=== PATIENT | female | born 1935 | race Caucasian/White ===

== ENCOUNTER → 2017-03-04 | Outpatient (CLI) | payer BC ==
[2017-03-04 12:29] LABS: BASO ABS # 0.06 K/uL (0-0.2); COMPLETE YES; IG% 0.3 %; LYMPH % 26.7 %; LYMPH ABS # 1.68 K/uL (1.2-3.4); MEAN CELL VOLUME 90.9 fL (80-100); MEAN CORPUSCULAR HEMOGLOBIN 30.5 pg (25-34); MEAN CORPUSCULAR HGB CONC 33.6 g/dl (32-36); MEAN PLATELET VOLUME 11.8 fL (7.4-10.4); MONO % 6.5 %; NEUT % 61.5 %; PLATELET COUNT 168 K/uL (130-400); RED BLOOD COUNT 4.29 M/uL (4.2-5.4)
[2017-03-04 12:57] LABS: BLOOD UREA NITROGEN 14 mg/dl (7-18); BUN/CREATININE RATIO 17.2 (10-20); CARBON DIOXIDE 27 mmol/L (21-32); CHLORIDE 107 mmol/L (98-107); CHOLESTEROL 202 mg/dl (0-200); CREATININE 0.83 mg/dl (0.60-1.20); GLUCOSE 90 mg/dl (70-99); POTASSIUM 4.1 mmol/L (3.5-5.1); SODIUM 142 mmol/L (136-145); TRIGLYCERIDES 106 mg/dl (0-150); VERY LOW DENSITY LIPOPROT CALC 21 mg/dl
[2017-03-04 13:07] LABS: CHOLESTEROL/HDL RATIO 3.5; HDL CHOLESTEROL 57 mg/dl; LDL CHOLESTEROL CALCULATED 124 mg/dl
== END | disposition home or self-care (01) ==
LOC: C.LABMFLN 08:10
PROVIDERS: ATTEND Family Medicine
DX: Z00.00 Encounter for general adult medical examination without abnormal findings (principal); E03.9 Hypothyroidism, unspecified

== ENCOUNTER 2018-09-08 05:41 | Inpatient (IN) ==
[2018-09-08] MEDS ORDERED: SODIUM CHLORIDE 0.9% 1000ML 1,000 ML IV ONE (05:51)
[2018-09-08] MEDS ORDERED: ONDANSETRON INJ 2 MG/ML 2 ML VIAL IV STA (05:51)
[2018-09-08 06:29] LABS: Hematocrit (blood only) 40.3 % (37-47); Hemoglobin 14.1 g/dL (12.0-16.0); Mean Corpuscular Volume 86.9 fL (80-100); RDW Standard Deviation 41.6 fL (36.4-46.3); Red Blood Count 4.64 M/uL (4.2-5.4); White Blood Count 3.35 K/uL (4.8-10.8)
[2018-09-08 06:33] LABS: Albumin Level 3.4 gm/dl (3.4-5.0); Calcium 9.6 mg/dl (8.5-10.1); Creatinine Clr Calc Pharmacy 48.4 ml/min; Est GFR (African American) 56.4; Est GFR (Non-African American) 48.6; Potassium 3.4 mmol/L (3.5-5.1)
[2018-09-08 06:35] LABS: INR 1.1 (0.9-1.1)
[2018-09-08 06:49] LABS: Mean Platelet Volume 12.4 fL (7.4-10.4); Platelet Count 64 K/uL (130-400)
[2018-09-08 06:50] LABS: Basophils # (auto) 0.01 K/uL (0-0.2); Basophils % (auto) 0.3 %; Immature Granulocytes # (auto) 0.01 K/uL (0.00-0.02); Immature Granulocytes % (auto) 0.3 %; Lymphocytes # (auto) 0.35 K/uL (1.2-3.4); Lymphocytes % (auto) 10.4 %; Monocytes # (auto) 0.19 K/uL (0.11-0.59); Monocytes % (auto) 5.7 %; Neutrophils # (auto) 2.79 K/uL (1.4-6.5); Neutrophils % (auto) 83.3 %; Platelet Estimate Decreased (Normal); RBC Morphology Unremarkable
[2018-09-08 06:51] LABS: Bilirubin,Total 2.3 mg/dl (0.2-1); Globulin 3.3 gm/dl (2.5-4.0); Total Protein 6.7 gm/dl (6.4-8.2); Troponin I 0.049 ng/ml (0-0.045)
[2018-09-08] MEDS ORDERED: POTASSIUM CHLORIDE 10 MEQ TABCR PO STA (06:55)
--- NOTE | 2018-09-08 07:10 | Emergency Department Note ---
Entered by Jazmín Patterson acting as a scribe for Ronn Haas MD History of Present Illness General Chief complaint: Nausea Stated complaint: BLOATING,NAUSEA Time Seen by Provider: 09/08/18 06:23 Source: patient Limitations: no limitations History of Present Illness Provider complaint: abdominal pain Onset (ago): day(s) 3 Location: abdomen Radiation: non-radiation Maximum Pain Intensity: 6 Associated symptoms: + denies other symptoms (-diarrhea), + fever/chills (chills no fevers ), + headaches (intermittent ) and + nausea/vomiting The patient is a 83 year old female who presents to the Emergency Room with complaints of abdominal pain that began 3 days prior to arrival. The patient states that she feels distended. The patient states that she has vomiting, nausea, chills, and intermittent headaches. The patient denies any diarrhea. The patient denies a history of any previous abdominal surgeries and states that she still has her gallbladder and appendix. 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 The patient states that she had a cystoscopy in July. Home Medications Home Medications Medication Instructions Recorded Confirmed Type levothyroxine 75 mcg PO DAILY 09/08/18 09/08/18 History Allergies Allergy/AdvReac Type Severity Reaction Status Date / Time clindamycin Allergy Intermediate "CAUSED Verified 09/08/18 06:12 C-DIFF" Penicillins Allergy Intermediate "THICK Verified 09/08/18 06:12 TONGUE, ITCHY HANDS & FEET". Past Med/Surg History Medical History Hypothyroidism Dehydration UTI (urinary tract infection) DVT prophylaxis Elevated troponin Thrombocytopenia Intractable nausea and vomiting Hematuria No significant active problems No significant family history No significant past medical history No significant past surgical history Social History Preferred Language: Bolivian Communication Ability: Effective Burn Out Tender Lace Required: No Beliefs That Will Affect Care: None marital status: / Current Living Situation: Alone Other Information That Helps Us Care for You: No Feels Safe at Home: Yes Safety Concerns: Feels Safe At This Time Smoking Status: Former smoker Do You Dip or Chew Tobacco: No Second Hand Exposure: No Tobacco Cessation Education Requested by Patient: No Hx Alcohol Use: Yes Alcohol type: wine Hx Substance Use: No Review of Systems See HPI for pertinent positives & negatives. and A total of 10 systems reviewed and were otherwise negative Physical Exam Vital Signs Vital Signs - 24 hr 09/08/18 07:00 Pulse Rate [Finger] 89 Pulse Rhythm [Finger] Regular Pulse Strength [Finger] Normal Respiratory Rate 18 Respiratory Effort / Characteristics Non-Labored Spontaneous Respiratory Depth Normal Respiratory Pattern Regular Blood Pressure [Right Arm] 130/91 Blood Pressure Mean [Right Arm] 104 Blood Pressure Position [Right Arm] Lying Pulse Oximetry 95 Oxygen Delivery Method Room Air GENERAL: Awake, alert, well-appearing, in no acute distress HENT: Normocephalic, atraumatic. Oropharynx unremarkable. EYES: Normal conjunctiva. Sclera non-icteric. NECK: Supple. No nuchal rigidity. FROM. No JVD. RESPIRATORY: Clear to auscultation. CARDIAC: Regular rate, normal rhythm. Extremities warm and well perfused. Pulses equal. ABDOMEN: Soft, non-distended. No tenderness to palpation. No rebound or guarding. No masses. RECTAL: Deferred. MUSCULOSKELETAL: Chest examination reveals no tenderness. The back is symmetrical on inspection without obvious abnormality. There is no CVA tenderness to palpation. No joint edema. LOWER EXTREMITIES: Calves are equal size bilaterally and non-tender. No edema. No discoloration. NEURO: Normal sensorium. No sensory or motor deficits noted. SKIN: No rash or jaundice noted. Course 0625: The patient was evaluated in room A11B, and a complete history and physical examination were performed. 0750: I discussed the patient's case with Oksana [facility] Hospitalist who will [facility] the [facility] the patient for further hospitalization. Consultations Consultation #1[facility] who will admit the patient to [facility] Time: 07:50 Administered Medications Doxycycline Hyclate (Vibramycin) 100 mg PO BID REPLACED BY [facility] Stop: 09/13/18 20:59 Last Admin: 09/08/18 20:41 Dose: 100 mg Documented by: [id number] Lactated Ringer's (Lr) 1,000 mls @ 80 mls/hr IV .[id number] NIA Stop: 10/08/18 10:25 Last Admin: 09/08/18 23:25 Dose: 80 mls/hr Documented by: [id number] Infusion: 09/08/18 23:25 Dose: 80 mls/hr Documented by: [id number] Admin: 09/08/18 11:21 Dose: 80 mls/hr Documented by: [id number] Ioversol (Optiray 320 100ml) 95 ml IV ONCE PRN PRN Reason: Interaction Checking Stop: 09/12/18 07:39 Last Admin: 09/08/18 07:40 Dose: 95 ml Documented by: [id number] Discontinued Medications Doxycycline Hyclate (Vibramycin) 100 mg PO NOW STA Stop: 09/08/18 07:20 Last Admin: 09/08/18 07:47 Dose: 100 mg Documented by: [id number] Sodium Chloride (Nss 1000ml) 1,000 mls @ 999 mls/hr IV .Q1H1M ONE Stop: 09/08/18 06:51 Last Infusion: 09/08/18 07:21 Dose: 0 mls/hr Documented by: [id number] Admin: 09/08/18 06:11 Dose: 999 mls/hr Documented by: [id number] Ceftriaxone Sodium 2,000 mg/ (Dextrose) 70 mls @ 100 mls/hr IV NOW STA Stop: 09/08/18 08:11 Last Infusion: 09/08/18 09:37 Dose: 0 mls/hr Documented by: [id number] Admin: 09/08/18 08:43 Dose: 100 mls/hr Documented by: [id number] Ondansetron HCl (Zofran) 4 mg IV NOW STA Stop: 09/08/18 05:52 Last Admin: 09/08/18 06:11 Dose: 4 mg Documented by: [id number] Potassium Chloride (Klor-Con M10) 40 meq PO NOW STA Stop: 09/08/18 06:56 Last Admin: 09/08/18 07:47 Dose: 40 meq Documented by: [id number] Medical Decision Making Differential Diagnosis Differential diagnosis: Etiologies such as appendicitis, diverticulitis, PUD, biliary pathology, UTI, pancreatitis, obstruction, mesenteric ischemia, aortic pathology, infections, inflammatory bowel disease, renal colic, as well as others were entertained. Medical Records Attestation: I reviewed the patient's medical records. Home Medications Current Medication List: was personally reviewed by me Laboratory Data Attestation: I reviewed the patient's lab results. Result diagrams: 09/09/18 05:37 09/08/18 06:05 Lab Results 05/09/08/18 09/08/18 Range/Units 06:05 06:05 06:05 WBC 3.35 L (4.8-10.8) K/uL RBC 4.64 (4.2-5.4) M/uL Hgb 14.1 (12.0-16.0) g/dL Hct 40.3 (37-47) % MCV 86.9 (80-100) fL MCH 30.4 (25-34) pg MCHC 35.0 (32-36) g/dL RDW Std Deviation 41.6 (36.4-46.3) fL RDW Coeff of Franklin 13.0 (11.5-14.5) % Plt Count 64 L (130-400) K/uL MPV 12.4 H (7.4-10.4) fL Immature Gran % (Auto) 0.3 % Neut % (Auto) 83.3 % Lymph % (Auto) 10.4 % [place] % (Auto) 5.7 % Eos % (Auto) 0.0 % Baso % (Auto) 0.3 % Immature Gran # (Auto) 0.01 (0.00-0.02) K/uL Neut # (Auto) 2.79 (1.4-6.5) K/uL Lymph # (Auto) 0.35 L (1.2-3.4) K/uL [place] # (Auto) 0.19 (0.11-0.59) K/uL Eos # (Auto) 0.00 (0-0.5) K/uL Baso # (Auto) 0.01 (0-0.2) K/uL Toxic Vacuolation 1+ Platelet Estimate Decreased L (Normal) RBC Morphology Unremarkable PT 11.0 (9.0-12.0) Seconds INR 1.1 (0.9-1.1) Sodium 138 (136-145) mmol/L Potassium 3.4 L (3.5-5.1) mmol/L Chloride 107 (98-107) mmol/L Carbon Dioxide 22 (21-32) mmol/L Anion Gap 9.0 (3-11) BUN 31 H (7-18) mg/dl Creatinine 1.07 (0.6-1.2) mg/dl Est Cr Clr Drug Dosing 48.4 ml/min Est GFR ( Amer) 56.4 Est GFR (Non-Af Amer) 48.6 BUN/Creatinine Ratio 29.0 H (10-20) Glucose 112 H (70-99) mg/dl POC Lactic Acid Chuck (0.90-1.70) mmol/L Calcium 9.6 (8.5-10.1) mg/dl Magnesium 2.0 (1.8-2.4) mg/dl Total Bilirubin 2.3 H (0.2-1) mg/dl AST 48 H (15-37) U/L ALT 33 (12-78) U/L Alkaline Phosphatase 50 (45-117) U/L Total Creatine Kinase (26-192) U/L CK-MB (CK-2) (0.5-3.6) ng/ml CK/CKMB % Calc (0-3.0) Troponin I 0.049 H* (0-0.045) ng/ml Total Protein 6.7 (6.4-8.2) gm/dl Albumin 3.4 (3.4-5.0) gm/dl Globulin 3.3 (2.5-4.0) gm/dl Albumin/Globulin Ratio 1.0 (0.9-2) Lipase 103 (73-393) U/L TSH 2.390 (0.300-4.500) uIu/ml Lyme Disease IgG Ab (Negative) Lyme Disease IgM Ab (Negative) 09/08/18 09/08/18 09/08/18 Range/Units 06:05 06:07 06:13 WBC (4.8-10.8) K/uL RBC (4.2-5.4) M/uL Hgb (12.0-16.0) g/dL Hct (37-47) % MCV (80-100) fL MCH (25-34) pg MCHC (32-36) g/dL RDW Std Deviation (36.4-46.3) fL RDW Coeff of Franklin (11.5-14.5) % Plt Count (130-400) K/uL MPV (7.4-10.4) fL Immature Gran % (Auto) % Neut % (Auto) % Lymph % (Auto) % [place] % (Auto) % Eos % (Auto) % Baso % (Auto) % Immature Gran # (Auto) (0.00-0.02) K/uL Neut # (Auto) (1.4-6.5) K/uL Lymph # (Auto) (1.2-3.4) K/uL [place] # (Auto) (0.11-0.59) K/uL Eos # (Auto) (0-0.5) K/uL Baso # (Auto) (0-0.2) K/uL Toxic Vacuolation Platelet Estimate (Normal) RBC Morphology PT (9.0-12.0) Seconds INR (0.9-1.1) Sodium (136-145) mmol/L Potassium (3.5-5.1) mmol/L Chloride (98-107) mmol/L Carbon Dioxide (21-32) mmol/L Anion Gap (3-11) BUN (7-18) mg/dl Creatinine (0.6-1.2) mg/dl Est Cr Clr Drug Dosing ml/min Est GFR ( Amer) Est GFR (Non-Af Amer) BUN/Creatinine Ratio (10-20) Glucose (70-99) mg/dl POC Lactic Acid Chuck 1.19 (0.90-1.70) mmol/L Calcium (8.5-10.1) mg/dl Magnesium (1.8-2.4) mg/dl Total Bilirubin (0.2-1) mg/dl AST (15-37) U/L ALT (12-78) U/L Alkaline Phosphatase (45-117) U/L Total Creatine Kinase 359 H (26-192) U/L CK-MB (CK-2) 1.9 (0.5-3.6) ng/ml CK/CKMB % Calc 0.5 (0-3.0) Troponin I (0-0.045) ng/ml Total Protein (6.4-8.2) gm/dl Albumin (3.4-5.0) gm/dl Globulin (2.5-4.0) gm/dl Albumin/Globulin Ratio (0.9-2) Lipase (73-393) U/L TSH (0.300-4.500) uIu/ml Lyme Disease IgG Ab Negative (Negative) Lyme Disease IgM Ab Negative (Negative) Imaging Data Radiologist's Impression: Radiology results as stated below per my review and the radiologist's interpretation: ABDOMEN AND PELVIS CT WITH IV CONTRAST CT DOSE: 776.37 mGy.cm HISTORY: Acute generalized abdominal pain with distention Pt c/o abd distension TECHNIQUE: Multiaxial CT images of the abdomen and pelvis were performed following the use of intravenous contrast. A dose lowering technique was utilized adhering to the principles of ALARA. COMPARISON STUDY: CT abdomen and pelvis 09/23/2017 FINDINGS: Lung bases are generally clear. No pneumatosis or pneumoperitoneum. Imaged i nferior cardiac chambers appear unremarkable. Large gallstones are seen about the gallbladder neck. No CT evidence of acute cholecystitis. No choledocholithiasis identified. No significant biliary ductal dilation. The spleen, liver, and adrenal glands are unremarkable. Patency of the hepatic and portal veins. Moderate parenchymal atrophy of the pancreas. Kidneys unremarkable. Probable cyst of the interpolar left kidney, 5 mm. No renal or ureteral calculi or obstructive uropathy. Ureters are unremarkable. Mild bladder wall thickening with multiple small bladder diverticula. Prior hysterectomy. Calcifications and air are seen about the vaginal cuff. No adnexal mass lesions. Extensive calcifications of the abdominal aorta without aneurysm. IVC is unremarkable. No adenopathy. Small hiatal hernia. Large duodenal diverticulum. No small bowel obstruction. Extensive colonic diverticulosis without acute diverticulitis. Terminal ileum and appendix appear normal. No ascites or mesenteric inflammation. Mild diastases recti. Soft tissues are unremarkable. Bones appear intact. Severe disc space narrowing with spondylitic spurring and posterior disc osteophyte complex formation at L5-S1. IMPRESSION: 1. No bowel obstruction or focal bowel wall thickening. Normal appendix. 2. Extensive colonic diverticulosis without acute diverticulitis. 3. Mild wall thickening of the bladder is noted in addition to multiple small bladder diverticula. Correlate with urinalysis to exclude cystitis. 4. Cholelithiasis without CT evidence of acute cholecystitis. 5. Additional findings as above. Electronically signed by: Sean López M.D. 09/08/2018 7:47 AM XR chest 1V portable CLINICAL HISTORY: Atypical chest pain, nausea, vomiting COMPARISON STUDY: June 10, 2014 FINDINGS: The heart is borderline enlarged. There is aortic tortuosity/ectasia. Slight interstitial prominence, likely relates to technical factors. There is no lobar consolidation. Slight increased markings the left lung base are likely atelectatic. There are no pleural effusions. There is no pneumothorax. There is no free intraperitoneal air.[ IMPRESSION: No active disease in the chest. Electronically signed by: Seth Willams M.D. 09/08/2018 8:34 AM ECG Data Attestation: I personally reviewed and interpreted this ECG as follows: Indication: abdominal pain Rate (beats per minute): 93 Rhythm: normal sinus Findings: no ST depression and no ST elevation Blood Pressure Blood Pressure Findings: Normal blood pressure MDM Narrative This is an 83-year-old female who presents the emergency department complaining of epigastric distention. The patient reports she has been vomiting has been unable to keep anything down. Her troponin is elevated here in the emergency department. The patient's platelet as well as white blood cell count are decreased she does live in [facility] and admits to recent tick exposure. For this reason I did give the patient 2 g of Rocephin as well as doxycycline in case this is an anaplasmosis diagnosis. Because of the elevated troponin I did discuss case with the hospitalist service. Patient was given a normal saline bolus here in the emergency department. Patient family were in agreement with the treatment plan. Impression & Plan Elevated troponin, Platelets decreased, Nausea Discharge Plan Visit Data *Final* Discharge Date/Time: 09/08/18 09:51 Chief Complaint: Nausea Stated Complaint: BLOATING,NAUSEA ED Provider: Ronn Haas Discharge Problem: Elevated troponin, Platelets decreased, Nausea Patient Disposition: Admitted As Inpatient Discharge Instructions Interventions: ED Discharge Assessment Last Done: 09/08/18 09:51 The scribe's documentation has been prepared under my direction and personally reviewed by me in its entirety. I confirm that the note above accurately reflects all work, treatment, procedures, and medical decision making performed by me.
[2018-09-08] MEDS ORDERED: DOXYCYCLINE HYCLATE 100 MG CAP PO STA (07:19)
[2018-09-08 07:26] LABS: Creatine Kinase MB 1.9 ng/ml (0.5-3.6)
[2018-09-08] MEDS ORDERED: cefTRIAXone SODIUM 2,000 MG in DEXTROSE 5% 50 ML IV STA (07:30)
[2018-09-08 07:31] LABS: Toxic Vacuolation 1+
[2018-09-08] MEDS ORDERED: IOVERSOL 100ml IV PRN (07:40)
--- NOTE | 2018-09-08 07:48 | CT Scan Report ---
ABDOMEN AND PELVIS CT WITH IV CONTRAST CT DOSE: 776.37 mGy.cm HISTORY: Acute generalized abdominal pain with distention Pt c/o abd distension TECHNIQUE: Multiaxial CT images of the abdomen and pelvis were performed following the use of intrave nous contrast. A dose lowering technique was utilized adhering to the principles of ALARA. COMPARISON STUDY: CT abdomen and pelvis 09/23/2017 FINDINGS: Lung bases are generally clear. No pneumatosis or pneumoperitoneum. Imaged inferior cardiac chambers appear unremarkable. Large gallstones are seen about the gallbladder neck. No CT evidence of acute cholecystitis. No ben docholithiasis identified. No significant biliary ductal dilation. The spleen, liver, and adrenal gla nds are unremarkable. Patency of the hepatic and portal veins. Moderate parenchymal atrophy of the pa ncreas. Kidneys unremarkable. Probable cyst of the interpolar left kidney, 5 mm. No renal or ureteral calculi or obstructive uropathy. Ureters are unremarkable. Mild bladder wall thickening with multipl e small bladder diverticula. Prior hysterectomy. Calcifications and air are seen about the vaginal cu ff. No adnexal mass lesions. Extensive calcifications of the abdominal aorta without aneurysm. IVC is unremarkable. No adenopathy. Small hiatal hernia. Large duodenal diverticulum. No small bowel obstruction. Extensive colonic dive rticulosis without acute diverticulitis. Terminal ileum and appendix appear normal. No ascites or mes enteric inflammation. Mild diastases recti. Soft tissues are unremarkable. Bones appear intact. Sever e disc space narrowing with spondylitic spurring and posterior disc osteophyte complex formation at L 5-S1. IMPRESSION: 1. No bowel obstruction or focal bowel wall thickening. Normal appendix. 2. Extensive colonic diverticulosis without acute diverticulitis. 3. Mild wall thickening of the bladder is noted in addition to multiple small bladder diverticula. Co rrelate with urinalysis to exclude cystitis. 4. Cholelithiasis without CT evidence of acute cholecystitis. 5. Additional findings as above. Electronically signed by: Sean López M.D. 09/08/2018 7:47 AM
--- NOTE | 2018-09-08 07:55 | History & Physical Report ---
Date of Service September 08, 2018 Assessment & Plan (1) Dehydration: (2) Intractable nausea and vomiting: -Admit to [facility] with telemetry -LR at 80 mL/h -Trend a.m. labs -P.o. diet ordered, as tolerated -Tylenol and Zofran as needed -elevated troponin likely secondary to demand ischemia and dehydration, patient appears to be clinically dry. -Consider anaplasmosis with the [place], exposure to [place], recent acute illness with no known sick contacts, nausea, v omiting, arthralgia, myalgia and likely fever at the beginning of her course. Serology is pending, follow -CT of the abdomen reviewed showing cholelithiasis, extensive colonic diverticulosis, and bladder thickening suspicious for cystitis/UTI and multiple small bladder diverticula. (3) Thrombocytopenia: -Platelet = 64, trend with a.m. labs to ensure improving -Likely secondary to acute illness as described above, patient does take an Aleve once at night for arthralgia -has been using this for many years. (4) Elevated troponin: -Likely secondary to dehydration, will trend x2 more sets (5) UTI (urinary tract infection): -UA appears to be contaminated, follow urine culture. -Was treated on 07/25/2018 for UTI growing alpha strep and gamma strep, not enterococcus, with Keflex. -Cover with doxycycline 100 mg BID (6) Hypothyroidism: -Continue Synthroid (7) DVT prophylaxis: -Teds. No chemical prophylaxis with thrombocytopenia. Patient is ambulatory. History of Present Illness Primary Care Provider: Cody Ruiz DO This is an 83 yo F with PMHx of hypothyroidism who presents with acute onset of intractable nausea and vomiting. Upon eval in the ER a troponin was noted to be slightly elevated, as well as decreased platelet count. The patient reports that she has felt ill since last Tuesday, where she has been unable to tolerate p.o. intake. Patient notes that she initially was having issues with vomiting bilious fluids, and since then has just limited the amount of water she is drinking and not eating food. She has been lying around her home resting because she is so fatigued. Patient denies any specific fever. She has complained of body aches and joint pains. Patient notes that she took a friend to a doctor's appointment on Tuesday at [facility] and thinks she may have contracted something there. Patient does admit [place] and has been exposed to ticks in the past, however does not remember a specific tick bite recently. Patient also had a UTI ~2 months ago for which she completed a 5-day course of Keflex. Patient notes that that medication did not agree with her, where she felt ill during its course but did complete it. Platelet = 64, troponin= 0.049, K+ = 3.4. CT of the abdomen and pelvis completed showing extensive colonic diverticulosis without acute diverticulitis, and mild wall thickening of the bladder is noted in addition to multiple small bladder diverticula. Cholelithiasis without CT evidence of acute cholecystitis. Allergies Allergy/AdvReac Type Severity Reaction Status Date / Time clindamycin Allergy Intermediate "CAUSED Verified 09/08/18 06:12 C-DIFF" Penicillins Allergy Intermediate "THICK Verified 09/08/18 06:12 TONGUE, ITCHY HANDS & FEET". Home Medications Home Medications Medication Instructions Recorded Confirmed Type levothyroxine 75 mcg PO DAILY 09/08/18 09/08/18 History doxycycline hyclate 100 mg PO BID #18 cap 09/09/18 Rx doxycycline hyclate 100 mg PO BID 10 Days #18 cap 09/09/18 Rx Past Med/Surg History Medical History Hypothyroidism Dehydration UTI (urinary tract infection) DVT prophylaxis Elevated troponin Thrombocytopenia Intractable nausea and vomiting Hematuria No significant active problems No significant family history No significant past medical history No significant past surgical history Social History Preferred Language: Martiniquais Communication Ability: Effective Medical Lab Assistant Required: No Beliefs That Will Affect Care: None marital status: / Current Living Situation: Alone Other Information That Helps Us Care for You: No Feels Safe at Home: Yes Safety Concerns: Feels Safe At This Time Smoking Status: Former smoker Do You Dip or Chew Tobacco: No Second Hand Exposure: No Tobacco Cessation Education Requested by Patient: No Hx Alcohol Use: Yes Alcohol type: wine Hx Substance Use: No Review of Systems Review of Systems: Constitutional: No fever, sweats or chills Eyes: No diplopia, no worsening or blurred vision ENT: normal hearing, no trouble swallowing Respiratory: No cough, sputum, dyspnea at rest or on exertion Cardiovascular: No chest pain, tightness or palpitations Abdomen: No pain, nausea, vomiting, diarrhea or constipation, + poor oral intake, last BM was yesterday formed and soft. Musculoskeletal: No joint pain, calf pain, swelling Neurologic: + Generalized weakness. no numbness/tingling or balance problems Psychiatric: No anxiety or depression Skin: No rash or itch Physical Exam Physical Exam: General: awake, alert, no apparent distress Head: Normocephalic, atraumatic ENT: PERRL, EOMI, no pharyngeal exudate, + mucous membranes dry Chest: Clear to auscultation, on room air, no adventitious breath sounds Cardiac: Regular rate and rhythm, no murmur, no JVD, normal peripheral pulses, good capillary refill Abdominal: NABS x 4 quadrants, soft, nontender to palpation, no rebound, guarding or tenderness Extremities: Normal inspection, no peripheral edema or erythema, calfs nontender to palpation Psych: Normal mood and affect Neuro: AAO x 3, no motor deficits, speech is clear Results & Data Vital Signs (Past 12 Hours) Vital Signs Temp Pulse Pulse Resp BP BP Pulse Ox 09/08/18 07:00 89 18 130/91 95 09/08/18 06:03 94 H 18 142/99 H 94 09/08/18 05:45 36.8 C 97 H 18 86/40 L 96 Diagnostic Findings ABDOMEN AND PELVIS CT WITH IV CONTRAST CT DOSE: 776.37 mGy.cm HISTORY: Acute generalized abdominal pain with distention Pt c/o abd distension TECHNIQUE: Multiaxial CT images of the abdomen and pelvis were performed following the use of intravenous contrast. A dose lowering technique was utilized adhering to the principles of ALARA. COMPARISON STUDY: CT abdomen and pelvis 09/23/2017 FINDINGS: Lung bases are generally clear. No pneumatosis or pneumoperitoneum. Imaged i nferior cardiac chambers appear unremarkable. Large gallstones are seen about the gallbladder neck. No CT evidence of acute cholecystitis. No choledocholithiasis identified. No significant biliary ductal dilation. The spleen, liver, and adrenal glands are unremarkable. Patency of the hepatic and portal veins. Moderate parenchymal atrophy of the pancreas. Kidneys unremarkable. Probable cyst of the interpolar left kidney, 5 mm. No renal or ureteral calculi or obstructive uropathy. Ureters are unremarkable. Mild bladder wall thickening with multiple small bladder diverticula. Prior hysterectomy. Calcifications and air are seen about the vaginal cuff. No adnexal mass lesions. Extensive calcifications of the abdominal aorta without aneurysm. IVC is unremarkable. No adenopathy. Small hiatal hernia. Large duodenal diverticulum. No small bowel obstruction. Extensive colonic diverticulosis without acute diverticulitis. Terminal ileum and appendix appear normal. No ascites or mesenteric inflammation. Mild diastases recti. Soft tissues are unremarkable. Bones appear intact. Severe disc space narrowing with spondylitic spurring and posterior disc osteophyte complex formation at L5-S1. IMPRESSION: 1. No bowel obstruction or focal bowel wall thickening. Normal appendix. 2. Extensive colonic diverticulosis without acute diverticulitis. 3. Mild wall thickening of the bladder is noted in addition to multiple small bladder diverticula. Correlate with urinalysis to exclude cystitis. 4. Cholelithiasis without CT evidence of acute cholecystitis. 5. Additional findings as above. ECG Additional Comments: 08-SEP-2018 06:00:31 [facility]-EDSTAT ROUTINE RETRIEVAL Normal sinus rhythm Normal ECG When compared with ECG of 06-FEB-2013 09:28, No significant change was found 25mm/s 10mm/mV 150Hz 9.0.8 12SL 241 JIMY: 3 Unconfirmed Vent. rate 93 BPM FL interval 170 ms QRS duration 98 ms QT/QTc 348/432 ms P-R-T axes 67 -2 62 Code Status & VTE Plan Code Status DNR-discussed with patient and daughter at bedside. Supervising Physician Co-Signing Physician Notes During my face to face encounter with patient, I performed a history and physical examination. I reviewed above note and agree with it. I answered of the patient's questions. Will monitor the patient for what appears to be likely viral gastroenteritis vs tick borne pathogen.. will monitor vitals and cbc
[2018-09-08 08:21] LABS: Lyme Ab IgG w/WB Rflx Negative (Negative); Lyme Ab IgM w/WB Rflx Negative (Negative)
--- NOTE | 2018-09-08 08:35 | XRay Report ---
XR chest 1V portable CLINICAL HISTORY: Atypical chest pain, nausea, vomiting COMPARISON STUDY: June 10, 2014 FINDINGS: The heart is borderline enlarged. There is aortic tortuosity/ectasia. Slight interstitial p rominence, likely relates to technical factors. There is no lobar consolidation. Slight increased mar kings the left lung base are likely atelectatic. There are no pleural effusions. There is no pneumoth orax. There is no free intraperitoneal air.[ IMPRESSION: No active disease in the chest. Electronically signed by: Seth Willams M.D. 09/08/2018 8:34 AM
[2018-09-08 08:59] LABS: Appearance Urine Clear (Clear); Bilirubin Urine Negative (Negative); Blood Urine 1+ (Negative); Color Urine Dark Yellow; Epithelial Cell Urine Auto >30 /lpf (0-5); Glucose Urine UA Negative (Negative); Ketones Urine Trace (Negative); Leukocyte Esterase Urine 1+ (Negative); Nitrite Urine Negative (Negative); Protein Urine 1+ (Negative); Specific Gravity Urine > 1.045 (1.000-1.030); Urobilinogen Urine Negative (Negative)
[2018-09-08 09:23] LABS: Bacteria Urine Automated 1+ (Negative); Mucus Urine Present (None Prsent)
[2018-09-08] MEDS ORDERED: ACETAMINOPHEN 325 MG TAB PO PRN (10:26)
[2018-09-08] MEDS ORDERED: ONDANSETRON INJ 2 MG/ML 2 ML VIAL IV PRN (10:26)
[2018-09-08] MEDS: LACTATED RINGER'S 1,000 ML IV SCH ×2 (11:21→23:25)
[2018-09-08] MEDS: DOXYCYCLINE HYCLATE 100 MG CAP PO SCH (20:41)
[2018-09-09 06:08] LABS: Hematocrit (blood only) 31.4 % (37-47); Hemoglobin 11.1 g/dL (12.0-16.0); Mean Corpuscular Hgb Conc 35.4 g/dL (32-36); Mean Corpuscular Volume 87.5 fL (80-100); Mean Platelet Volume 12.8 fL (7.4-10.4); Platelet Count 62 K/uL (130-400); RDW Coefficient of Variation 13.1 % (11.5-14.5); RDW Standard Deviation 42.3 fL (36.4-46.3); Red Blood Count 3.59 M/uL (4.2-5.4); White Blood Count 2.68 K/uL (4.8-10.8)
[2018-09-09 06:40] LABS: Albumin Level 2.5 gm/dl (3.4-5.0); BUN Creatinine Ratio 31.1 (10-20); Calcium 7.9 mg/dl (8.5-10.1); Creatinine Clr Calc Pharmacy 68.2 ml/min; Est GFR (African American) 85.3; Est GFR (Non-African American) 73.6; Magnesium 1.8 mg/dl (1.8-2.4); Potassium 3.7 mmol/L (3.5-5.1)
[2018-09-09 06:44] LABS: Bilirubin,Total 1.1 mg/dl (0.2-1); Globulin 2.6 gm/dl (2.5-4.0); Phosphorus 2.1 mg/dl (2.5-4.9); Total Protein 5.1 gm/dl (6.4-8.2)
[2018-09-09] MEDS: DOXYCYCLINE HYCLATE 100 MG CAP PO SCH (08:16)
[2018-09-09] MEDS: LACTATED RINGER'S 1,000 ML IV SCH (11:03)
--- NOTE | 2018-09-12 09:51 | Discharge Summary ---
Date of Service September 09, 2018 Admission HPI Per Admitting Provider This is an 83 yo F with PMHx of hypothyroidism who presents with acute onset of intractable nausea and vomiting. Upon eval in the ER a troponin was noted to be slightly elevated, as well as decreased platelet count. The patient reports that she has felt ill since last Tuesday, where she has been unable to tolerate p.o. intake. Patient notes that she initially was having issues with vomiting bilious fluids, and since then has just limited the amount of water she is drinking and not eating food. She has been lying around her home resting because she is so fatigued. Patient denies any specific fever. She has com plained of body aches and joint pains. Patient notes that she took a friend to a doctor's appointment on Tuesday at [facility] and thinks she may have contracted something there. Patient does admit that [place] and has been exposed to ticks in the past, however does not remember a specific tick bite recently. Patient also had a UTI ~2 months ago for which she completed a 5-day course of Keflex. Patient notes that that medication did not agree with her, where she felt ill during its course but did complete it. Platelet = 64, troponin= 0.049, K+ = 3.4. CT of the abdomen and pelvis completed showing extensive colonic diverticulosis without acute diverticulitis, and mild wall thickening of the bladder is noted in addition to multiple small bladder diverticula. Cholelithiasis without CT evidence of acute cholecystitis. Principal Diagnosis Thrombocytopenia, intractable nausea and vomiting. Discharge Exam General: awake, alert, no apparent distress Head: Normocephalic, atraumatic ENT: PERRL, EOMI, no pharyngeal exudate, mucous membranes: moist Chest: Clear to auscultation, on room air, no adventitious breath sounds Cardiac: Regular rate and rhythm, no murmur, no JVD, normal peripheral pulses, good capillary refill Abdominal: NABS x 4 quadrants, soft, nontender to palpation, no rebound, guarding or tenderness Extremities: Normal inspection, no peripheral edema or erythema, calfs nontender to palpation Psych: Normal mood and affect Neuro: AAO x 3, no motor deficits, speech is clear Discharge Data Allergies Allergy/AdvReac Type Severity Reaction Status Date / Time clindamycin Allergy Intermediate "CAUSED Verified 09/08/18 06:12 C-DIFF" Penicillins Allergy Intermediate "THICK Verified 09/08/18 06:12 TONGUE, ITCHY HANDS & FEET". Consultations 09/08/18 07:50 ED Decision to Admit Stat 09/08/18 10:26 Consult Case Management - Discharge Planning Routine Ordered Studies 09/08/18 06:32 CT abd pelvis IV con only Stat Hospital Course (1) Dehydration: (2) Intractable nausea and vomiting: -Admit to [facility] with telemetry -LR at 80 mL/h -Trend a.m. labs -P.o. diet ordered, as tolerated -Tylenol and Zofran as needed -elevated troponin likely secondary to demand ischemia and dehydration, patient appears to be clinically dry. -Consider anaplasmosis with the [place], exposure [place], recent acute illness with no known sick contacts, nausea, vomiting, arthralgia, myalgia and likely fever at the beginning of her course. Serology is pending, follow -CT of the abdomen reviewed showing cholelithiasis, extensive colonic diverticulosis, and bladder thickening suspicious for cystitis/UTI and multiple small bladder diverticula. On day of discharge, vitals normal. Patient is asymptomatic. Will discharge on doxy for possible tick borne pathogen. Awaiting test results will recheck patelets as an out patient (3) Thrombocytopenia: -Platelet = 64, discharged on 62. trend . labs as outpatient -Likely secondary to acute illness as described above, patient does take an Aleve once at night for arthralgia -has been using this for many years. (4) Elevated troponin: -Likely secondary to dehydration, peaked at 0.049 (5) UTI (urinary tract infection): -UA appears to be contaminated, follow urine culture. -Was treated on 07/25/2018 for UTI growing alpha strep and gamma strep, not enterococcus, with Keflex. -Cover with doxycycline 100 mg BID for total of 10 days (6) Hypothyroidism: -Continue Synthroid (7) DVT prophylaxis: -Teds. No chemical prophylaxis with thrombocytopenia. Patient is ambulatory. Total Time Total Time Spent Total Time Spent (In Minutes): 31 Total Time Includes: Examination of the Patient, Discharge Planning and Medication Reconciliation Discharge Plan Discharge Items Patient Disposition: Home - Self-Care Reason For Visit: INTRACTABLE NAUSEA & VOMITING, ELEVATED TROPONIN, Discharge Diagnosis: Intractable nausea, vomiting Discharge Goals: Decrease discomfort Activity: Resume your previous activity Non-emergency contact: Primary Care Provider Call non-emergency contact if: you have any medication questions Follow-up/Referrals: Cody Ruiz DO [Primary Care Provider] - Diet: Regular Addtl Provider Instructions: Recommend rechecking platelets in about 5 days. Possibilities may be from a tick bite which we will treat with an antibiotic or this may have also been a virus. Recommend f/u with PCP in about 1-2 weeks. Prescriptions: New doxycycline hyclate 100 mg Capsule 100 mg PO BID Qty: 18 RF: 0 doxycycline hyclate 100 mg capsule 100 mg PO BID 10 Days Qty: 18 RF: 0 Continued levothyroxine 75 mcg tablet 75 mcg PO DAILY RF: 0 Stand-Alone Forms: [facility] Discharge Orders: Discharge Order (Routine); Ordered 09/09/18 Ordered By: Angus Wilkins Admission Data Admit Date/Time: 09/08/18 08:09 Attending Provider: Angus Wilkins Admit Provider: Chantal Castillo Primary Care Provider: Cody Ruiz Other Providers: Angus Wilkins Service: Medical Other Interventions: Discharge Summary Assessment (RN) Last Done: 09/09/18 16:09 DC Date/Time DO NOT enter until pt leaves facility: 09/09/18 16:46
[2018-09-13 19:54] LABS: Anaplasma phagocytophila IgM <1:20 (<1:20); Ehrlichia chaff IgG Ab <1:64 (<1:64); Ehrlichia chaff IgM Ab <1:20 (<1:20)
== END 2018-09-09 16:46 | disposition home or self-care (01) | DRG 641 ==
LOC: ED 05:41 → 2W 08:09

== ENCOUNTER 2024-10-31 15:27 | Inpatient (IN) ==
--- NOTE | 2024-10-31 16:03 | Emergency Department Note ---
Impression & Plan Mass of cecum, Acute appendicitis ED Provider Note Provider: Hunter Toledo MD CHIEF COMPLAINT: Referred, abdominal pain HISTORY OF PRESENT ILLNESS: Patient is a 89-year-old female history of GERD, prior cholecystectomy last year, hypothyroidism presenting here today referred after outpatient testing had CT abnormalities. Patient evidently over the last month or so has been having some intermittent right lower abdominal discomfort. Some upper abdominal discomfort is been present for a month or 2 as well. Thought was constipation in July. Saw her primary doctor in follow-up today and sent for outpatient imaging. Has had some thinner stools but no vomiting or nausea. No bloody stool. 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 No falls. No fevers. Has been losing a little bit of weight as she is not been eating well. Some mild right lower abdominal pain currently but this has been waxing and waning. PAST MEDICAL HISTORY: As noted above MEDICATIONS: Reviewed home medications, no blood thinners SOCIAL HISTORY: Retired nurse PHYSICAL EXAM: GENERAL: alert and oriented in no acute distress on stretcher Head: normocephalic and atraumatic EYES: No injection, discharge or icterus. NECK: Trachea midline. ENT: Mucous membranes pink and moist. LUNGS: Airway patent. No retractions or tachypnea HEART: Regular rate and rhythm. ABDOMEN: Soft some mild right lower abdominal pain. No guarding. SKIN: Acyanotic, warm, dry, without rashes EXTREMITIES: Without swelling, tenderness or deformity NEUROLOGICAL: No focal deficits. No aphasia. No facial droop or slurred speech. Ambulatory. Patient's laboratory studies and imaging reviewed. Differential includes Appendicitis, infections, diverticulitis, UTI, obstruction, mesenteric ischemia, aortic pathology, inflammatory bowel disease, renal colic, PUD, pancreatitis, biliary pathology, hernia, volvulus, constipation, as well as other pathologies. IMPRESSION/MEDICAL DECISION MAKING: Patient return to outpatient setting. Reviewed outpatient note from today. Blood work without significant abnormalities. Does not appear febrile or toxic. Some tenderness in the right abdomen. Has been more chronic in nature. CT scan reviewed findings of cecal mass and some possible metastatic masses as well as some dilation of the appendix. Do question if this is more of the mass causing obstruction and dilation of the appendix rather than true appendicitis. Any event however discussed with the general surgery team. Feel that starting IV antibiotics in case there is any infectious component present is reasonable. She will be brought in for overnight observation to ensure stability with this. Discussed with the patient and her daughters at bedside. Will need further evaluation of mass and biopsy but likely this can be does in a more staged manner. Again patient is nontoxic in appearance and does not appear septic. No perforation noted on CT report. Seen by the general surgery team and discussed with hospitalist team for admission. Given IV Cipro and Flagyl given her allergy profile. DIAGNOSIS: Cecal mass, appendicitis DISPOSITION: Hospitalist will evaluate as well as general surgery Patient was agreeable with this plan. Past Med/Surg History Problem List (Updated 10/31/24 @ 17:31 by Hunter Toledo M.D.) Acute appendicitis (Acute) Mass of cecum (Acute) Abdominal pain Bilateral knee pain Hx laparoscopic cholecystectomy (09/08/23) p Laparoscopic Cholecystectomy(Not Applicable) - Sheldon Martinez DO s Esophagogastroduodenoscopy(Not Applicable) - Sheldon Martinez DO GERD (gastroesophageal reflux disease) Gastritis Cholelithiasis Insomnia Frequent urination History of compression fracture of spine (01/23/22) L1 compression fracture Post-menopausal Low back pain Lumbar pain Right hip pain Actinic keratosis (Chronic) Personal history of malignant neoplasm of skin (Chronic) Hypothyroidism (Chronic) Medical History Arthritis Urinary frequency GERD (gastroesophageal reflux disease) triggered by food Constipation History of skin cancer s/p excision Gum disease Hypothyroidism Hx: UTI (urinary tract infection) recently finished Bactrim Hx of fall 2021>L1 compression fx (no surgery required) Surgical History Hx of cholecystectomy H/O esophagogastroduodenoscopy (09/08/23) p Laparoscopic Cholecystectomy(Not Applicable) - Sheldon Martinez DO s Esophagogastroduodenoscopy(Not Applicable) - Sheldon Martinez DO History of cataract surgery History of gynecologic surgery pelvic floor repair History of cystoscopy History of bladder surgery sling/bladder tack History of tooth extraction Hx of tubal ligation H/O rectocele repair Status post Mohs surgery nose area Hx of abdominal hysterectomy Family History Unknown Skin cancer Malignant neoplasm of esophagus Diabetes Mother Myocardial infarction Father Stroke Son Diabetes Heart disease Aunt Cancer Uncle Cancer Other No family history of adverse response to anesthesia Denies family history of Ovarian cancer Prostate cancer Breast cancer Colorectal cancer Social History Smoking Status: Former smoker Tobacco Type: Cigarettes Age Started Using Tobacco: 21; Age Quit Using Tobacco: 62; packs per day: 0.25; Second Hand Exposure: Yes (as a child); Do You Dip or Chew Tobacco: No; Hx Alcohol Use: Yes Alcohol type: beer and wine Alcohol Intake Frequency: Monthly or Less Hx Substance Use: No Preferred Language: Yi Communication Ability: Effective Visual Impairment: Limited Hearing Ability: Normal Pediatric Immunologist Required: No Beliefs That Will Affect Care: None marital status: / Current Living Situation: Alone current occupational status: retired current occupation: Retired RN How many Children do You have: 3 Feels Safe at Home: Yes Childhood Exposure to Second-Hand Smoke: Yes (Both parents) Diet: regular Diet Comment: Regular diet caffeine: Yes (Tea) during the past year weight has: remained stable Dental Care, Regularly: Yes Physical Activity Frequency: Other Physical Activity Frequency Comment: housework/gardening Seatbelt Use: always Sunscreen Use: Yes Do you think of yourself as: straight/heterosexual Gender Identity: Female Assistive Devices: Denture - Upper and Glasses Allergies Allergies Allergy/AdvReac Type Severity Reaction Status Date / Time Penicillins Allergy Severe "THICK Verified 10/31/24 12:28 TONGUE, ITCHY HANDS & FEET". clindamycin AdvReac Intermediate "CAUSED Verified 10/31/24 16:40 C-DIFF" Home Meds Home Medications Medication Instructions Recorded Confirmed peg 400-propylene glycol (PF) 0.4 1 drp OPB QAM PRN dry eye 09/08/23 10/31/24 %-0.3 % eye drops in a dropperette (Systane (PF)) ibuprofen 200 mg tablet (Advil) 200 mg PO DAILY PRN Pain 10/31/24 10/31/24 levothyroxine 88 mcg tablet 88 mcg PO DAILYBB 10/31/24 10/31/24 (Synthroid) Previous Rx's Medication Instructions Recorded lumbar support #1 ea 02/09/22 triamcinolone acetonide 0.1 % 1 applic topical BID PRN rash #80 06/16/23 topical cream grams famotidine 40 mg tablet (Pepcid) 40 mg PO DAILY PRN Acid Reflux #90 08/09/24 tabs Results & Data (ED) Vital Signs Vital Signs - 24 hr 10/31/24 15:38 10/31/24 16:57 Temperature 36.6 C Temperature Source Skin Pulse Rate 87 Pulse Rate [Finger] 82 Respiratory Rate 16 16 Respiratory Effort / Characteristics Non-Labored Spontaneous Respiratory Depth Normal Respiratory Pattern Regular Blood Pressure 190/97 H Blood Pressure [Right Arm] 148/97 H Blood Pressure Mean 128 Blood Pressure Mean [Right Arm] 114 Pulse Oximetry 94 94 Oxygen Delivery Method Room Air Room Air Sepsis Recent Fever Within 48 Hours No Sepsis New/Unexplained Change in Mental Status N/A Sepsis Action Taken by Nursing No Action Required Administered Medications Ciprofloxacin (Cipro / D5w) 400 mg in 200 mls @ 100 mls/hr IV NOW STA; Protocol Stop: 10/31/24 18:03 Last Admin: 10/31/24 16:29 Dose: 100 mls/hr Documented By: TIMOTEO Discontinued Medications Metronidazole (Metronidazole 500 Mg Tab) 500 mg PO NOW STA; Protocol Stop: 10/31/24 16:05 Last Admin: 10/31/24 16:29 Dose: 500 mg Documented By: TIMOTEO Discharge Plan Visit Data Chief Complaint: Abnormal Labs/Diagnostic Testing Stated Complaint: CT OUTPATIENT, NEEDS SEEN IN ER ED Provider: Hunter Toledo Discharge Problem: Mass of cecum, Acute appendicitis Patient Disposition: Being Evaluated by Hospitalist Condition: Fair Forms Stand Alone Forms: My [facility] Prescriptions Prescriptions: No Action triamcinolone acetonide 0.1 % cream 1 applic topical BID PRN (Reason: rash) Qty: 80 1RF (DME) lumbar support See Rx Instructions .Route .MEDSUPPLY Qty: 1 0RF Rx Instructions: As directed famotidine [Pepcid] 40 mg tablet 40 mg PO DAILY PRN (Reason: Acid Reflux) Qty: 90 3RF Systane (PF) 0.4-0.3 % Dropperette 1 drp OPB QAM PRN (Reason: dry eye) levothyroxine [Synthroid] 88 mcg tablet 88 mcg PO DAILYBB ibuprofen [Advil] 200 mg Tablet 200 mg PO DAILY PRN (Reason: Pain) Referrals Referrals: Cody Ruiz DO [Primary Care Provider] -
--- NOTE | 2024-10-31 16:17 | Surgery Consultation ---
<Statement entered by Oracio Eli, DO - 10/31/24 19:00> This case was discussed with the surgical CONSUMER LOAN SPECIALIST and PA, I agree with this plan Date of Consultation October 31, 2024 Assessment & Plan (1) Mass of cecum: Patient referred to the [facility] ER from an op visit with c/o intermittent abdominal pain for the past few months that has increased intensity and frequency, constipation and had outpatient testing with CT abnormalities. 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 Cecal mass could be obstructing the appendix. On exam the patient is in NAD, VSS with HTN, afebrile, WBC wnl. Abd is soft , TTP RLQ and RUQ. Would recommend pt being admitted to hospitalist service, Treat appendicitis with IV abx , Keep npo with IV fluids for hydration, PRN analgesics. Repeat CBC in AM. PT will need colonoscopy in the near future, CT of chest, CEA level which can be done on as an op. Cecal mass non obstructing at this time no acute surgical interventions indicated. General surgery will follow. Dr Eli notified and patient findings discussed, and she agreed with the above. (2) Acute appendicitis: History of Present Illness Reason for Consultation: acute appendicitis , cecal mass Requesting Physician: Dr Toledo History of Present Illness Patient is a pleasant 89 yo female with PMH GERD, hypothyroidism, constipation, that was referred to the [facility] ER from an op visit with c/o abdominal pain, constipation and had outpatient testing with CT abnormalities. Patient reports she has been having some intermittent right lower abdominal discomfort that has been present for the past few months. She does take stool softeners to help with constipation and has suffered from this for years. The character of stool has changed to looking thinner. No vomiting, nausea, bloody stool. Patient has never had a colonoscopy. She reports that she has hx of cystocele and rectocele repair and she did not want a scope near her post surgical site. She has had a tubal ligation and hysterectomy, cholecystectomy and EGD. No family hx of colon CA. CT scan imaging showing to have a dilated appendix and also cecal mass with likely metastatic disease. Allergies Allergy/AdvReac Type Severity Reaction Status Date / Time Penicillins Allergy Severe "THICK Verified 10/31/24 12:28 TONGUE, ITCHY HANDS & FEET". clindamycin Allergy Intermediate "CAUSED Verified 10/31/24 12:28 C-DIFF" Home Medications Medication Instructions Recorded Confirmed Type lumbar support #1 ea 02/09/22 10/31/24 Rx triamcinolone acetonide 0.1 % 1 applic topical BID PRN rash #80 06/16/23 10/31/24 Rx topical cream grams doxepin 3 mg tablet 3 mg PO HS PRN Sleep 08/30/23 10/31/24 History peg 400-propylene glycol (PF) 0.4 1 drp ophthalmic (eye) BID PRN dry 09/08/23 10/31/24 History %-0.3 % eye drops in a dropperette eye (Systane (PF)) famotidine 40 mg tablet (Pepcid) 40 mg PO DAILY PRN Acid Reflux #90 08/09/24 10/31/24 Rx tabs levothyroxine 88 mcg tablet 88 mcg PO QAM #90 tabs 08/09/24 10/31/24 Rx (Synthroid) Patient History Medical History Arthritis Urinary frequency GERD (gastroesophageal reflux disease) triggered by food Constipation History of skin cancer s/p excision Gum disease Hypothyroidism Hx: UTI (urinary tract infection) recently finished Bactrim Hx of fall 2021>L1 compression fx (no surgery required) Surgical History Hx of cholecystectomy H/O esophagogastroduodenoscopy (09/08/23) p Laparoscopic Cholecystectomy(Not Applicable) - Sheldon Martinez DO s Esophagogastroduodenoscopy(Not Applicable) - Sheldon Martinez DO History of cataract surgery History of gynecologic surgery pelvic floor repair History of cystoscopy History of bladder surgery sling/bladder tack History of tooth extraction Hx of tubal ligation H/O rectocele repair Status post Mohs surgery nose area Hx of abdominal hysterectomy Family History Unknown Skin cancer Malignant neoplasm of esophagus Diabetes Mother Myocardial infarction Father Stroke Son Diabetes Heart disease Aunt Cancer Uncle Cancer Other No family history of adverse response to anesthesia Denies family history of Ovarian cancer Prostate cancer Breast cancer Colorectal cancer Social History Smoking Status: Former smoker Tobacco Type: Cigarettes Age Started Using Tobacco: 21; Age Quit Using Tobacco: 62; packs per day: 0.25; Second Hand Exposure: Yes (as a child); Do You Dip or Chew Tobacco: No; Hx Alcohol Use: Yes Alcohol type: beer and wine Alcohol Intake Frequency: Monthly or Less Hx Substance Use: No Preferred Language: Czech Communication Ability: Effective Visual Impairment: Limited Hearing Ability: Normal Hazardous Waste Remover Required: No Beliefs That Will Affect Care: None marital status: / Current Living Situation: Alone current occupational status: retired current occupation: Retired RN How many Children do You have: 3 Feels Safe at Home: Yes Childhood Exposure to Second-Hand Smoke: Yes (Both parents) Diet: regular Diet Comment: Regular diet caffeine: Yes (Tea) during the past year weight has: remained stable Dental Care, Regularly: Yes Physical Activity Frequency: Other Physical Activity Frequency Comment: housework/gardening Seatbelt Use: always Sunscreen Use: Yes Do you think of yourself as: straight/heterosexual Gender Identity: Female Assistive Devices: Denture - Upper and Glasses Review of Systems Respiratory: no dyspnea Cardiovascular: no chest pain Gastrointestinal: + abdominal pain and + change in bowel h abits; no nausea and no vomiting Musculoskeletal: no muscle weakness Psychiatric: no confusion Physical Exam Constitutional: cooperative and comfortable; no acute distress Respiratory: normal respiratory effort and able to speak in complete sentences; no respiratory distress Cardiovascular: Rate/Rhythm: regular rate Gastrointestinal (Abdomen): Inspection/Auscultation: abdomen not distended Percussion/Palpation: + abdomen tender and abdomen soft Psychiatric: A+Ox3, euthymic affect Results & Data Vital Signs (Past 12 Hours) Vital Signs Temp Pulse Resp BP Pulse Ox O2 Del Method 10/31/24 15:38 97.9 F 87 16 190/97 H 94 Room Air Diagnostic Findings [facility], [place] [phone] CT Scan Report Patient: BECKY MARKS Admit Date: 10/31/24 MR#: [id number] Address1: [address] Acct ID:[id number] Address2: Date: 1935 [facility] Zip: [place] [address] Age: 89 Location: CT Sex: F Room/Bed: Att Phy: Cody Ruiz DO Diagnosis: R10.9 - Unspecified abdominal pain Evy Phy: Cody Ruiz DO Service Date: 10/31/24 [facility] Phy: Interpreting Phy: Michel Moody MDAdmit Phy: Ordering Phy: Cody Ruiz DO cc: ~ ABDOMEN AND PELVIS CT WITH IV CONTRAST CT DOSE: 1218.02 mGy.cm HISTORY: R10.9 - Unspecified abdominal pain TECHNIQUE: Multiaxial CT images of the abdomen and pelvis were performed following the IV administration of 90 cc of Optiray, A dose lowering technique was utilized adhering to the principles of ALARA. COMPARISON STUDY: 09/08/2018 FINDINGS: ABDOMEN: Gallbladder is surgically absent. Liver, spleen, and adrenal glands are unremarkable. Stable tiny cyst at the right kidney. Kidneys show no hydronephrosis or calculi. There is mild pancreatic ductal dilatation. There is moderate pancreatic atrophy. There is an 8 mm cystic finding at the pancreatic body, likely pancreatic cyst or small IPMN. No evidence of acute pancreatitis. There are scattered atherosclerotic calcifications. No abdominal aortic aneurysm. Pelvis: Uterus is absent. No adnexal mass. Urinary bladder is nondistended. There is extensive sigmoid diverticulosis. No acute diverticulitis. There is a cecal mass measuring approximately 3 cm. There are multiple mesenteric masses at the right mid and lateral upper pelvis anteriorly, largest adjacent to the cecal mass measures 3.5 cm series 3 image 196. The appendix is dilated measuring up to 1.5 cm diameter with enhancing wall and a few appendicoliths distally. There is mild to moderate surrounding inflammatory stranding. The appendix may be obstructed by the cecal mass. No free fluid, free air, or abscess seen. Osseous structures: There is interval severe height loss at the L1 vertebral body without acute features, likely chronic vertebral body compression abnormality. There is lumbar degenerative disc disease. No acute osseous findings. IMPRESSION: 1. Cecal mass suspicious for malignancy with adjacent omental masses consistent with metastatic disease. 2. Findings consistent with acute uncomplicated appendicitis. The cecal mass may be causing obstruction of the appendix. 3. Otherwise as described. ACT 112: Positive. There are findings on this exam that require communication between the performing entity and the patient following Patient Test Result Information Act ([place] Act 112) guidelines. The above report was generated using voice recognition software. It may contain grammatical, syntax or spelling errors. Electronically signed by: Michel Moody M.D. 10/31/2024 3:00 PM Dictated: 10/31/24 144 Transcribed: 10/31/24 144 Results CBC w Diff Results: RBC 4.12 M/uL (4.20-5.40) L 10/31/24 WBC 9.45 K/ul (4.8-10.8) 10/31/24 Hgb 12.3 g/dl (12.0-16.0) 10/31/24 Hct 36.1 % (37.0-47.0) L 10/31/24 MCV 87.6 fL (80.0-100.0) 10/31/24 MCH 29.9 pg (25.0-34.0) 10/31/24 MCHC 34.1 g/dL (32.0-36.0) 10/31/24 RDW Standard Deviation 40.4 fL (36.4-46.3) 10/31/24 RDW Coefficient of Variation 12.6 % (11.5-14.5) 10/31/24 Plt Count 262 K/uL (130-400) 10/31/24 MPV 11.9 fL (9.4-12.4) 10/31/24 Nucleated Red Blood Cells % (auto) 0.0 % 08/13 Nucleated RBC Absolute Count (auto) 0.00 K/uL (0-0) 07/18 12/07 Neutrophils (%) (Auto) 72.5 % 10/31/24 Lymphocytes (%) (Auto) 16.9 % 10/31/24 Monocytes # (Auto) 0.72 K/uL (0.11-0.59) H 10/31/24 Eosinophils # (Auto) 0.20 K/uL (0.00-0.50) 10/31/24 Immature Granulocyte % (Auto) 0.3 % 10/31/24 Neutrophils # (Auto) 6.84 K/uL (1.40-6.50) H 10/31/24 Lymphocytes # (Auto) 1.60 K/uL (1.20-3.40) 10/31/24 Monocytes # (Auto) 0.72 K/uL (0.11-0.59) H 10/31/24 Eosinophils # (Auto) 0.20 K/uL (0.00-0.50) 10/31/24 Basophils # (Auto) 0.06 K/uL (0.00-0.20) 10/31/24 Immature Granulocyte # (Auto) 0.03 K/uL (0.01-0.20) 5 Red Blood Cell Morphology Unremarkable 09/08/18 Toxic Vacuolation 1+ 09/08/18 PG Care Time/CCT Total # of Minutes Spent Total Time Spent with Patient: Total time spent is greater than 50% in coordination of care (as documented) at patient's floor/unit and/or counseling patient: Coding Level of Care Code 63521 INT INP/OBS CARE 140MIN Diagnoses Mass of cecum K63.89 Acute appendicitis K35.80
[2024-10-31] MEDS: CIPROFLOXACIN / D5W 400 MG/200 ML BAG IV STA (16:29)
[2024-10-31] MEDS: metroNIDAZOLE 500 MG TAB PO STA (16:29)
--- NOTE | 2024-10-31 17:53 | History & Physical Report ---
Date of Service October 31, 2024 Assessment & Plan (1) Mass of cecum: (2) Acute appendicitis: (3) Hypothyroidism: (4) GERD (gastroesophageal reflux disease): Plan #cecal mass -highly concerning for cancer w at least localized mets -d/w pt and dtr - discussed next steps as well as potentials for courses of treatment. 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 discussed if immune therapy were an option that it would potentially different than what she recalls from her patient care years; at the same time discussed that if the main options are chemo/surgery that at her age it would not be unreasonable to say "thanks but no thanks" (and that also this would be a reasonable answer even if immune therapy were an option) - given that she retired in 1994, while i did agree that not treating may end up being her best choice in an unfortunate situation, i wanted her to take time to consider/discuss/gather more information given that occassionally in the modern era the clinical course may be different than she would recall -at this point, as far as gathering more information, she would like to discuss with GI but declines tumor markers or CT chest -miralax 17g daily for now #questionable appendicitis -really just on imaging - no fever, no elevated WBC, no RLQ tenderness/guarding/etc on exam -suspect more than likely dilated from obstruction at appendiceal orifice given her otherwise benign presentation as far as appy/infection -appreciate surgical vigilance/following -cipro/flagyl -since she feels hungry and has a benign exam - full liquids for now #hypothyroidism -continue home dosing of synthroid #GERD -continue home H2 #DVT proph -lovenox dispo - admit medical, [facility] hospitalist service, DNR/DNI as d/w pt; comes from home/lives independently - anticipate her being able to go home once discharged; duration of hospital stay largely contingent on (a) if anything evolves to truly resemble appendicitis and require intervention and (b) if she opts for further w/u of the cecal mass at the present time History of Present Illness Chief Complaint: abnormal CT scan Primary Care Provider: Cody Ruiz DO presented to ER after CT scan showing cecal mass as well as possible appendiceal inflammation. seen by surgical service already, input appreciated she notes she feels hungry per PCP visit earlier today: The patient presents for abdominal pain. She reports intermittent abdominal discomfort, which has been worsening since her last visit. She experiences constipation, despite taking Pepcid and MiraLAX daily. Her bowel movements are infrequent, occurring only once a week, and are soft in consistency. She does not experience diarrhea or hard stools. She also reports no presence of black, tarry, or bloody stools. She has never undergone a colonoscopy. She experiences severe cramps and pain in both the upper and lower abdomen, leading her to gaona spect appendicitis. She also reports bloating and distension. She has lost 7 pounds due to uncertainty about what to eat. She has not eaten today, but had a cup of tea in the morning. She experiences stomach cramps immediately after eating. She does not report any reflux or indigestion and maintains a good appetite. She underwent gallbladder removal in August 2023 and occasionally experiences discomfort at the site. She reports no urinary symptoms, although she has a history of UTIs. She occasionally feels cold. She recalls discussing these symptoms in July 2024, but declined an x-ray as she attributed them to constipation. She describes her stools as thin, suggesting a possible obstruction. She recalls an incident on Tuesday morning where she experienced severe pain and an urgent need to defecate, resulting in an explosive bowel movement. This incident provided some relief. She woke up at 3:30 AM today due to cramps. She is currently taking thyroid medication. Allergies Allergy/AdvReac Type Severity Reaction Status Date / Time Penicillins Allergy Severe "THICK Verified 10/31/24 12:28 TONGUE, ITCHY HANDS & FEET". clindamycin AdvReac Intermediate "CAUSED Verified 10/31/24 16:40 C-DIFF" Home Medications Medication Instructions Recorded Confirmed Type lumbar support #1 ea 02/09/22 10/31/24 Rx triamcinolone acetonide 0.1 % 1 applic topical BID PRN rash #80 06/16/23 10/31/24 Rx topical cream grams peg 400-propylene glycol (PF) 0.4 1 drp OPB QAM PRN dry eye 09/08/23 10/31/24 History %-0.3 % eye drops in a dropperette (Systane (PF)) famotidine 40 mg tablet (Pepcid) 40 mg PO DAILY PRN Acid Reflux #90 08/09/24 10/31/24 Rx tabs ibuprofen 200 mg tablet (Advil) 200 mg PO DAILY PRN Pain 10/31/24 10/31/24 History levothyroxine 88 mcg tablet 88 mcg PO DAILYBB 10/31/24 10/31/24 History (Synthroid) Past Med/Surg History Problem List Acute appendicitis (Acute) Mass of cecum (Acute) Abdominal pain Bilateral knee pain Hx laparoscopic cholecystectomy (09/08/23) p Laparoscopic Cholecystectomy(Not Applicable) - Sheldon Martinez DO s Esophagogastroduodenoscopy(Not Applicable) - Sheldon Martinez DO GERD (gastroesophageal reflux disease) Gastritis Cholelithiasis Insomnia Frequent urination History of compression fracture of spine (01/23/22) L1 compression fracture Post-menopausal Low back pain Lumbar pain Right hip pain Actinic keratosis (Chronic) Personal history of malignant neoplasm of skin (Chronic) Hypothyroidism (Chronic) Medical History Arthritis Urinary frequency GERD (gastroesophageal reflux disease) triggered by food Constipation History of skin cancer s/p excision Gum disease Hypothyroidism Hx: UTI (urinary tract infection) recently finished Bactrim Hx of fall 2021>L1 compression fx (no surgery required) Surgical History Hx of cholecystectomy H/O esophagogastroduodenoscopy (09/08/23) p Laparoscopic Cholecystectomy(Not Applicable) - Sheldon Martinez DO s Esophagogastroduodenoscopy(Not Applicable) - Sheldon Martinez DO History of cataract surgery History of gynecologic surgery pelvic floor repair History of cystoscopy History of bladder surgery sling/bladder tack History of tooth extraction Hx of tubal ligation H/O rectocele repair Status post Mohs surgery nose area Hx of abdominal hysterectomy Family History Unknown Skin cancer Malignant neoplasm of esophagus Diabetes Mother Myocardial infarction Father Stroke Son Diabetes Heart disease Aunt Cancer Uncle Cancer Other No family history of adverse response to anesthesia Denies family history of Ovarian cancer Prostate cancer Breast cancer Colorectal cancer Social History Smoking Status: Former smoker Tobacco Type: Cigarettes Age Started Using Tobacco: 21; Age Quit Using Tobacco: 62; packs per day: 0.25; Second Hand Exposure: Yes (as a child); Do You Dip or Chew Tobacco: No; Hx Alcohol Use: Yes Alcohol type: beer and wine Alcohol Intake Frequency: Monthly or Less Hx Substance Use: No Preferred Language: Kyrgyz Communication Ability: Effective Visual Impairment: Limited Hearing Ability: Normal 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 Beliefs That Will Affect Care: None marital status: / Current Living Situation: Alone current occupational status: retired current occupation: Retired RN How many Children do You have: 3 Feels Safe at Home: Yes Childhood Exposure to Second-Hand Smoke: Yes (Both parents) Diet: regular Diet Comment: Regular diet caffeine: Yes (Tea) during the past year weight has: remained stable Dental Care, Regularly: Yes Physical Activity Frequency: Other Physical Activity Frequency Comment: housework/gardening Seatbelt Use: always Sunscreen Use: Yes Do you think of yourself as: straight/heterosexual Gender Identity: Female Assistive Devices: Denture - Upper and Glasses Review of Systems Review of Systems: All systems reviewed & are unremarkable except as noted in HPI & below Physical Exam Physical Exam: gen aaox3 appropriately upset by the situation, no physical distress; heent nc at mmm. cardio reg rate. breathing unlabored no accessory muscles good effort. abd soft mild distention nontender no RLQ tenderness at all no guarding no rebound. ext no c/c. skin no rashes no pallor or icterus, neuro cn 2-12 grossly intact gross motor and sensory intact CT abd/pelvis 1. Cecal mass suspicious for malignancy with adjacent omental masses consistent with metastatic disease. 2. Findings consistent with acute uncomp licated appendicitis. The cecal mass may be causing obstruction of the appendix. 3. Otherwise as described. Results & Data Results & Data Vital Signs (Past 12 Hours) Vital Signs Temp Pulse Pulse Resp BP BP Pulse Ox 10/31/24 16:57 82 16 148/97 H 94 10/31/24 15:38 97.9 F 87 16 190/97 H 94 O2 Del Method 10/31/24 16:57 Room Air 10/31/24 15:38 Room Air Code Status & VTE Plan VTE Prophylaxis Plan VTE Prophylaxis will be ordered: Yes PG Care Time/CCT Total # of Minutes Spent Total Time Spent with Patient: Total time spent is greater than 50% in coordination of care (as documented) at patient's floor/unit and/or counseling patient: Coding Level of Care Code 39915 INT INP/OBS CARE 3/75MIN Diagnoses Mass of cecum K63.89 Acute appendicitis K35.80 Hypothyroidism E03.9 GERD (gastroesophageal reflux disease) K21.9
[2024-10-31] MEDS: ACETAMINOPHEN 1000 MG/100 ML IV IV ONE (18:39)
[2024-10-31] MEDS: ACETAMINOPHEN 325 MG TAB PO PRN (19:00)
[2024-10-31] MEDS ORDERED: ALUMINUM/MAGNESIUM SUSP 30 ML UDC PO PRN (20:16)
[2024-10-31] MEDS ORDERED: TRIAMCINOLONE ACET 0.1% CR 15 GM TUBE TOP PRN (20:16)
[2024-10-31] MEDS ORDERED: FAMOTIDINE 40 MG TABLET PO PRN (20:16)
[2024-10-31] MEDS ORDERED: MAGNESIUM HYDROXIDE SUSP 30 ML UDC PO PRN (20:16)
[2024-10-31] MEDS ORDERED: Patient's HEIGHT &/or WEIGHT Needed STA (20:40)
[2024-10-31] MEDS ORDERED: ARTIFICIAL TEARS OP PRN (20:45)
[2024-10-31] MEDS: LACTATED RINGER'S 1,000 ML IV SCH (21:41)
[2024-10-31] MEDS: ENOXAPARIN INJ 40 MG/0.4 ML SYR SQ SCH (21:43)
[2024-11-01] MEDS: metroNIDAZOLE 500 MG/100 ML BAG IV SCH (00:13)
[2024-11-01] MEDS: MoRPHine SULFATE 2 MG/ML CARP IV PRN (01:58)
[2024-11-01] MEDS: ONDANSETRON INJ 2 MG/ML 2 ML VIAL IV PRN (02:40)
[2024-11-01] MEDS: ACETAMINOPHEN 1,000 MG/100 ML VIAL IV PRN (02:41)
[2024-11-01] MEDS: HYDROmorphone INJ 0.5 MG/0.5 ML SYR IV STA (04:06)
[2024-11-01] MEDS: METOCLOPRAMIDE HCL INJ 5 MG/ML 2 ML VIAL IV STA (05:28)
[2024-11-01] MEDS: CIPROFLOXACIN / D5W 400 MG/200 ML BAG IV SCH (05:29)
[2024-11-01] MEDS: LEVOTHYROXINE SODIUM 88 MCG TABLET PO SCH (05:31)
[2024-11-01 07:46] LABS: Hematocrit (blood only) 32.2 % (37.0-47.0); Hemoglobin 10.8 g/dl (12.0-16.0); Immature Granulocytes # (auto) 0.03 K/uL (0.01-0.20); Immature Granulocytes % (auto) 0.4 %; Mean Corpuscular Hemoglobin 29.3 pg (25.0-34.0); Mean Corpuscular Volume 87.3 fL (80.0-100.0); Platelet Count 216 K/uL (130-400); RDW Standard Deviation 40.1 fL (36.4-46.3); Red Blood Count 3.69 M/uL (4.20-5.40); White Blood Count 8.55 K/ul (4.8-10.8)
[2024-11-01 08:03] LABS: Anion Gap 5.0 (3-11); Blood Urea Nitrogen 12.0 mg/dl (6-23); Calcium 8.7 mg/dl (8.6-10.3); Carbon Dioxide 27.0 mmol/L (21-32); Chloride 106.0 mmol/L (98-107); Creatinine Clr Calc Pharmacy 66.8 ml/min; Glucose 139.0 mg/dl (70-99(Fasting)); Potassium 3.8 mmol/L (3.5-5.1); Sodium 138.0 mmol/L (136-145)
[2024-11-01] MEDS: POLYETHYLENE (MIRALAX) 17 GM PACK PO SCH (08:46)
--- NOTE | 2024-11-01 10:28 | Gastrointestinal Consultation ---
Date of Consultation November 01, 2024 Assessment & Plan (1) Mass of cecum: -Clear liquid diet today -Bowel prep ordered -NPO after midnight -Colonoscopy tomorrow for further assessment Supervising Physician Co-Signing Physician Notes Patient seen and examined and agree with MICAH Thayer as above Abd: Soft, NT, ND, +BS Continue current therapy and supportive care Patient agreeable to Colonoscopy tomorrow. History of Present Illness Reason for Consultation: Cecal mass Attending Physician: Calixto Comer DO History of Present Illness Patient is an 89 yo female who presents for abdominal pain. She notes chronic constipation and tells me she takes Miralax at home for this to achieve only 1 bowel movement per week. She denies rectal bleeding. She has never had a colonoscopy. No pertinent family history of GI malignancy. She notes that recently she has had a change in the caliber of her stool to thin stools and episodes of severe pain one of which led her to the ED. She had a CT scan of the abdomen/pelvis that indicated a cecal mass. Current H/H 10.8/32.2. Allergies Allergy/AdvReac Type Severity Reaction Status Date / Time Penicillins Allergy Severe "THICK Verified 10/31/24 12:28 TONGUE, ITCHY HANDS & FEET". clindamycin AdvReac Intermediate "CAUSED Verified 10/31/24 16:40 C-DIFF" Home Medications Medication Instructions Recorded Confirmed Type lumbar support #1 ea 02/09/22 10/31/24 Rx triamcinolone acetonide 0.1 % 1 applic topical BID PRN rash #80 06/16/23 5 Rx topical cream grams peg 400-propylene glycol (PF) 0.4 1 drp OPB QAM PRN dry eye 09/08/23 10/31/24 History %-0.3 % eye drops in a dropperette (Systane (PF)) famotidine 40 mg tablet (Pepcid) 40 mg PO DAILY PRN Acid Reflux #90 08/09/24 10/31/24 Rx tabs ibuprofen 200 mg tablet (Advil) 200 mg PO DAILY PRN Pain 10/31/24 10/31/24 History levothyroxine 88 mcg tablet 88 mcg PO DAILYBB 10/31/24 10/31/24 History (Synthroid) Patient History Medical History Arthritis Urinary frequency GERD (gastroesophageal reflux disease) triggered by food Constipation History of skin cancer s/p excision Gum disease Hypothyroidism Hx: UTI (urinary tract infection) recently finished Bactrim Hx of fall 2021>L1 compression fx (no surgery required) Surgical History Hx of cholecystectomy H/O esophagogastroduodenoscopy (09/08/23) p Laparoscopic Cholecystectomy(Not Applicable) - Sheldon Martinez DO s Esophagogastroduodenoscopy(Not Applicable) - Sheldon Martinez DO History of cataract surgery History of gynecologic surgery pelvic floor repair History of cystoscopy History of bladder surgery sling/bladder tack History of tooth extraction Hx of tubal ligation H/O rectocele repair Status post Mohs surgery nose area Hx of abdominal hysterectomy Family History Unknown Skin cancer Malignant neoplasm of esophagus Diabetes Mother Myocardial infarction Father Stroke Son Diabetes Heart disease Aunt Cancer Uncle Cancer Other No family history of adverse response to anesthesia Denies family history of Ovarian cancer Prostate cancer Breast cancer Colorectal cancer Social History Smoking Status: Never smoker Tobacco Type: Cigarettes Age Started Using Tobacco: 21; Age Quit Using Tobacco: 62; packs per day: 0.25; Second Hand Exposure: No; Do You Dip or Chew Tobacco: No; Hx Alcohol Use: Yes Alcohol type: wine Alcohol Intake Frequency: Monthly or Less Hx Substance Use: No Preferred Language: Botswanan Communication Ability: Effective Visual Impairment: Limited Hearing Ability: Normal Senior Salesforce Developer Required: No Beliefs That Will Affect Care: None marital status: / Current Living Situation: Alone current occupational status: retired current occupation: Retired RN How many Children do You have: 3 Feels Safe at Home: Yes Safety Concerns: Feels Safe At This Time Childhood Exposure to Second-Hand Smoke: Yes (Both parents) Diet: regular Diet Comment: Regular diet caffeine: Yes (Tea) during the past year weight has: remained stable Dental Care, Regularly: Yes Physical Activity Frequency: Other Physical Activity Frequency Comment: housework/gardening Seatbelt Use: always Sunscreen Use: Yes Do you think of yourself as: straight/heterosexual Gender Identity: Female Assistive Devices: Bedside Commode, Cane, Walker and Other Review of Systems Constitutional: no fever and no chills Respiratory: no cough and no dyspnea Gastrointestinal: + abdominal pain, + change in stools and + constipation Psychiatric: no problem reported Physical Exam Constitutional: well developed Respiratory: normal respiratory effort Gastrointestinal (Abdomen): Inspection/Auscultation: abdomen normal to inspection Psychiatric: Orientation: alert and oriented x 3 Results & Data Vital Signs (Past 12 Hours) Vital Signs Temp Pulse Resp BP Pulse Ox O2 Del Method 11/01/24 07:28 36.5 C 80 16 153/79 H 94 Room Air 11/01/24 02:45 79 18 136/76 97 Room Air PG Care Time/CCT Total # of Minutes Spent Total Time Spent with Patient: Total time spent is greater than 50% in coordination of care (as documented) at patient's floor/unit and/or counseling patient: Coding Level of Care Code 10090 INT INP/OBS CARE 3/75MIN Diagnoses Mass of cecum K63.89
--- NOTE | 2024-11-01 11:35 | Surgery Progress Note ---
<Statement entered by Oracio Eli DO - 11/01/24 11:58> I have seen and examined this patient this am. I agreed with this plan. Date of Service November 01, 2024 Assessment & Plan (1) Acute appendicitis: Plan: patient here w/ abdominal pain primarily R sided, found to have concern for cecal mass with concern for local spread and appendicitis wbc 8, hbg 10. vitals stable, pt afebrile had episode of pain and nausea overnight. no longer passing gas. no emesis noted GI evaluated pt today and are planning on a bowel prep and performing a colonoscopy tomorrow if mass is obstructing may need to discuss surgical interventions this admission. if not obstructing then can consider home over wknd on course of abx (for treatment of presumed appendicitis) if tolerates a diet and f/u with oncology for discussions of chemo &/or recommended steps moving forward and can f/u with us for surgical planning pt is still weighing her options pending what is found on colonoscopy tomorrow, but seems more willing for treatment options after further workup and discussions are had (2) Mass of cecum: Admission and Anticipated Discharge Date Admission Date: October 31, 2024 Subjective patient report some pain across upper abdomen and nausea overnight. she is not passing any flatus recently and last bm ~2 days ago. Physical Exam Physical Exam: awake/alert, no distress Respiratory: normal respiratory effort Gastrointestinal (Abdomen): Percussion/Palpation: abdomen soft not overly tender on exam this AM Results & Data Vital Signs (Past 12 Hours) Vital Signs Temp Pulse Resp BP Pulse Ox O2 Del Method 11/01/24 07:28 97.7 F 80 16 153/79 H 94 Room Air 11/01/24 02:45 79 18 136/76 97 Room Air PG Care Time/CCT Total # of Minutes Spent Total Time Spent with Patient: Total time spent is greater than 50% in coordination of care (as documented) at patient's floor/unit and/or counseling patient: Coding Level of Care Code 98068 SUB INP/OBS CARE 05/12MIN Diagnoses Acute appendicitis K35.80 Mass of cecum K63.89
--- NOTE | 2024-11-01 12:19 | Hospitalist Progress Note ---
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 A dose of Dilaudid given last night. - Clear liquids today, NPO after midnight #Appendicitis - Likely due to appendix obstruction from the cecal mass - No signs of infection or appendicitis (neut. 7.49, lymph 0.58 but normal WBC) - On cipro/flagyl - IV LR fluids #hypothyroidism -continue home synthroid #GERD -continue home famotidine DVT: Lovenox Code: DNR/DNI Diet: Clear liquids Dispo: med surg Admission and Anticipated Discharge Date Admission Date: October 31, 2024 Supervising Physician Co-Signing Physician Notes I personally examined the patient and verified all vizcaino points of history and exam, discussed case, and agree with decision making with Dr Kaur Feeling about the same. No new complaints. No new needs. For colonoscopy tomorrow. Vitals noted, in general she is awake and alert pleasant no distress. HEENT normocephalic atraumatic mucous membranes moist. Breathing unlabored no accessory muscle use good effort. Skin without rashes pallor or icterus. Neuro without focal deficits. Cecal mass, appendiceal dilation question appendicitis from obstructionon antibiotics. For colonoscopy tomorrow. Subjective Pt is a 89 year old female with pmh of GERD, prior cholecystectomy last year, hypothyroidism, and constipation presenting to the ED after abnormal abdominal CT finding. Reports that she has a hx of abdominal cramping and distension that comes and goes. Still has constipation and has been unable to stool or urinate much after arriving to the ED. Notes some nausea with an urge to vomit over night as well as some chest discomfort that she attributes to medications. Reports no symptoms of fever, chills, dizziness, lightheadedness, SOB, dysuria, hematuria, or hematochezia. Review of Systems Review of Systems: As per HPI Physical Exam Physical Exam: General: Calm and in NAD CV: Normal r/r, S1, S2, no r/m/g, no carotid bruits, distal pulses 2+ b/l Lungs: CTA b/l, no wheezing, symmetrical chest expansion, b/l Abd: normal BS, no tenderness to palpation, no rebound tenderness or guarding Extremity: no LE edema Results & Data Results & Data Vital Signs (Past 12 Hours) Vital Signs Temp Pulse Resp BP Pulse Ox O2 Del Method 11/01/24 07:28 36.5 C 80 16 153/79 H 94 Room Air 11/01/24 02:45 79 18 136/76 97 Room Air
--- NOTE | 2024-11-01 14:47 | Electrocardiogram Report ---
Test Reason : Blood Pressure : */* mmHG Vent. Rate : 78 BPM Atrial Rate : 78 BPM P-R Int : 204 ms QRS Dur : 110 ms QT Int : 420 ms P-R-T Axes : 61 -23 61 degrees QTcB Int : 478 ms Normal sinus rhythm Incomplete left bundle block Nonspecific ST abnormality Abnormal ECG When compared with ECG of 26-Aug-2023 11:03, No significant change was found Confirmed by [place] Gabriel ([id number]) on 11/01/2024 2:47:35 PM Referred By: Cody Ruiz Confirmed By: [place] Gabriel
[2024-11-01] MEDS: LAVAGE SOLUTION 4000ML PO SCH (18:34)
--- NOTE | 2024-11-01 19:24 | Billing Data ---
Date of Service November 01, 2024 Coding Level of Care Code 06673 SUB INP/OBS CARE
--- NOTE | 2024-11-02 06:37 | Hospitalist Progress Note ---
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 - Awaiting histopathology results and surgery check-in - f/u outpatient FM next week with consideration for immunotherapy - d/c IV morphine - Acetaminophen for pain control. #Appendicitis - Colonoscopy does not show bowel obstruction - No signs of infection or appendicitis - d/c cipro/flagyl and IV RL fluids - Resume normal diet #hypothyroidism -continue home synthroid #GERD -continue home famotidine DVT: Lovenox Code: DNR/DNI Diet: normal diet Dispo: med surg Admission and Anticipated Discharge Date Admission Date: October 31, 2024 Subjective Pt is a 89 year old female with pmh of GERD, prior cholecystectomy last year, hypothyroidism, and constipation presenting to the ED after abnormal abdominal CT finding. Reports no events overnight. Currently stooling after given Miralax with feelings of peristalsis. Awaiting colonoscopy. Review of Systems Review of Systems: As per HPI Physical Exam Physical Exam: General: Calm and in NAD CV: Normal r/r, S1, S2, no r/m/g Lungs: CTA b/l, no wheezing, symmetrical chest expansion, b/l Abd: normal BS, no tenderness to palpation, no rebound tenderness or guarding Extremity: no LE edema Results & Data Results & Data Vital Signs (Past 12 Hours) Vital Signs Temp Pulse Resp BP Pulse Ox O2 Del Method 11/01/24 19:20 36.3 C L 88 16 190/92 H 97 Room Air
[2024-11-02] MEDS ORDERED: SIMETHICONE (ENDO) IR PRN (08:40)
--- NOTE | 2024-11-02 09:23 | History & Physical Bridge Note ---
Date of Service November 02, 2024 History & Physical Bridge Note I have examined the patient, reviewed the History & Physical and in the interval since the performance of the History & Physical I have noted the following changes of clinical significance: no changes noted Patient has completed a bowel prep and is having clear-yellow stools. Keep NPO and proceed with colonoscopy today. Supervising Physician Co-Signing Physician Notes Patient seen and examined, and agree with MICAH Thayer as above She denies any overt GI bleeding overnight Abd: Soft, NT, ND, +BS Continue current therapy and supportive care Proceed with colonoscopy today.
--- NOTE | 2024-11-02 09:35 | Surgery Progress Note ---
Date of Service November 02, 2024 Assessment & Plan (1) Mass of cecum: Plan: vss denies n/v , abd pain colonoscopy scheduled today pt desires to take it a day at a time and discuss with family options moving forward if mass is obstructing may need to discuss surgical interventions this admission. If non obstructing then can consider home on course of abx (for treatment of presumed appendicitis) if tolerates a diet should have op f/u with oncology and can f/u with us for surgical planning if patient desires [facility] surgery covering weekend Admission and Anticipated Discharge Date Admission Date: October 31, 2024 Subjective pt without complaints denies abd pain at present Review of Systems Respiratory: no dyspnea Cardiovascular: no chest pain Gastrointestinal: no abdominal pain, no nausea and no vomiting Musculoskeletal: no muscle weakness Psychiatric: no confusion Physical Exam Constitutional: cooperative and comfortable; no acute distress Respiratory: normal respiratory effort and able to speak in complete sentences; no respiratory distress Cardiovascular: Rate/Rhythm: regular rate Gastrointestinal (Abdomen): Inspection/Auscultation: abdomen not distended Percussion/Palpation: + abdomen tender and abdomen soft Psychiatric: A+Ox3, euthymic affect Results & Data Vital Signs (Past 12 Hours) Vital Signs Temp Pulse Resp BP Pulse Ox O2 Del Method 11/02/24 07:40 97.5 F L 90 18 160/78 H 95 Room Air PG Care Time/CCT Total # of Minutes Spent Total Time Spent with Patient: Total time spent is greater than 50% in coordination of care (as documented) at patient's floor/unit and/or counseling patient: Coding Level of Care Code 82229 SUB INP/OBS CARE 05/12MIN Diagnoses Mass of cecum K63.89
--- NOTE | 2024-11-02 11:43 | Anesthesiology Consultation ---
Date of Service November 02, 2024 Assessment & Plan Chart Review Chart Review: Acceptable Risk for Surgery Consults Requested none ASA ASA3 Proposed Anesthesia Anesthesia Type: MAC Risk / Benefits Reviewed With: PT / POA / Parent / Guardian, Accepts Plan and Informed Consent Obtained History Surgery Operation Date: 11/02/24 16:30 Proposed Procedures p Colonoscopy Dr. Leonardo Patterson, DO Height/Weight Height: 5 ft 8 in Weight: 82.9 kg Allergies Allergy/AdvReac Type Severity Reaction Status Date / Time Penicillins Allergy Severe "THICK Verified 11/02/24 11:24 TONGUE, ITCHY HANDS & FEET". clindamycin AdvReac Intermediate "CAUSED Verified 11/02/24 11:24 C-DIFF" Medications Home Medications Medication Instructions Recorded Confirmed Last Taken lumbar support #1 ea 02/09/22 10/31/24 Unknown triamcinolone acetonide 0.1 % 1 applic topical BID PRN rash #80 06/16/23 10/31/24 Unknown topical cream grams peg 400-propylene glycol (PF) 0.4 1 drp OPB QAM PRN dry eye 09/08/23 10/31/24 09/07/23 08:00 %-0.3 % eye drops in a dropperette (Systane (PF)) famotidine 40 mg tablet (Pepcid) 40 mg PO DAILY PRN Acid Reflux #90 08/09/24 10/31/24 Unknown tabs ibuprofen 200 mg tablet (Advil) 200 mg PO DAILY PRN Pain 10/31/24 10/31/24 Unknown levothyroxine 88 mcg tablet 88 mcg PO DAILYBB 10/31/24 10/31/24 Unknown (Synthroid) Active Medications Generic Name Dose Route Start Last Admin Trade Name Freq PRN Reason Stop Dose Admin Acetaminophen 650 mg 10/31/24 18:42 10/31/24 19:00 Acetaminophen 325 Mg Tab PO 11/30/24 18:41 650 mg Q4 PRN Administration pain - mild/moderate Enoxaparin Sodium 40 mg 10/31/24 21:30 11/01/24 20:22 Enoxaparin Inj 40 Mg/0.4 Ml Syr SQ 11/30/24 21:29 40 mg Q24H NIA Administration Ciprofloxacin 400 mg in 200 mls @ 100 mls/hr 11/01/24 06:00 11/02/24 08:18 Cipro / D5w IV 11/11/24 05:59 Infused Q12H NIA Infusion Protocol Metronidazole 500 mg in 100 mls @ 100 mls/hr 11/01/24 00:30 11/02/24 10:36 Flagyl IV 11/11/24 00:29 Infused Q8H NIA Infusion Protocol Lactated Ringer's 1,000 mls @ 80 mls/hr 10/31/24 20:16 11/01/24 23:56 Lr IV 11/03/24 20:15 80 mls/hr .[id number] NIA Administration Acetaminophen 1,000 mg in 100 mls @ 400 mls/hr 10/31/24 20:16 11/01/24 03:17 Ofirmev IV 11/03/24 20:15 Infused Q8H PRN Infusion mild/moderate Levothyroxine Sodium 88 mcg 11/01/24 06:30 11/02/24 05:48 Levothyroxine Sodium 88 Mcg Tablet PO 12/01/24 06:29 88 mcg DAILYBB NIA Administration Morphine Sulfate 2 mg 10/31/24 20:16 11/01/24 01:58 Morphine Sulfate 2 Mg/Ml Carp IV 11/14/24 20:15 2 mg Q4 PRN Administration Pain - moderate to severe Ondansetron HCl 4 mg 10/31/24 20:16 11/01/24 02:40 Ondansetron Inj 2 Mg/Ml 2 Ml Vial IV 11/30/24 20:15 4 mg Q6H PRN Administration Nausea Polyethylene Glycol 17 gm 11/01/24 09:00 11/02/24 08:15 Polyethylene (Miralax) 17 Gm Pack PO 12/01/24 08:59 17 gm DAILY NIA Administration NPO Date Last Intake of Fluids: 11/02/24 Time Last Intake of Fluids: 05:45 Date Last Intake of Solids: 10/31/24 Time Last Intake of Solids: 08:00 Past Medical History Medical History Arthritis Urinary frequency GERD (gastroesophageal reflux disease) triggered by food Constipation History of skin cancer s/p excision Gum disease Hypothyroidism Hx: UTI (urinary tract infection) recently finished Bactrim Hx of fall 2021>L1 compression fx (no surgery required) Exercise / Class Metabolic Activity III < 4 Walking/Shop/Light housework Past Family History Family History Unknown Skin cancer Malignant neoplasm of esophagus Diabetes Mother Myocardial infarction Father Stroke Son Diabetes Heart disease Aunt Cancer Uncle Cancer Other No family history of adverse response to anesthesia Denies family history of Ovarian cancer Prostate cancer Breast cancer Colorectal cancer Past Surgical History Surgical History Hx of cholecystectomy H/O esophagogastroduodenoscopy (09/08/23) p Laparoscopic Cholecystectomy(Not Applicable) - Sheldon Martinez DO s Esophagogastroduodenoscopy(Not Applicable) - Sheldon Martinez DO History of cataract surgery History of gynecologic surgery pelvic floor repair History of cystoscopy History of bladder surgery sling/bladder tack History of tooth extraction Hx of tubal ligation H/O rectocele repair Status post Mohs surgery nose area Hx of abdominal hysterectomy Past Anesthesia History No Hx of Anesthesia Complications and No Family Hx of Anesthesia Complications History of PONV No Hx of PONV and No Hx of Motion Sickness Social History Smoking Status: Never smoker Do You Dip or Chew Tobacco: No Hx Alcohol Use: Yes Alcohol type: wine alcohol intake frequency: holidays/special occasions only Hx Substance Use: No Physical Exam Vital Signs Last Vital Signs Temp 36.4 C L 11/02/24 11:30 Pulse 88 11/02/24 11:30 Resp 15 11/02/24 11:30 BP 178/85 H 11/02/24 11:30 Pulse Ox 95 11/02/24 07:40 O2 Del Method Room Air 11/02/24 11:30 Constitutional + obese; no acute distress ENMT Mouth: + dentures, + poor dentition, + chipped teeth and + loose teeth; no TMJ abnormality Thyromental Distance: > or= 3.5 Finger Breadths Mallampati Class: II Neck normal visual inspection Respiratory normal respiratory effort Auscultation: lungs clear to auscultation bilaterally Cardiovascular Rate/Rhythm: regular rate and regular rhythm Psychiatric Orientation: alert and oriented x 3 Testing Laboratory Results 11/01/24 07:06 11/01/24 07:06 Electrocardiogram Date: 11/01/24 Findings: + NSR @, + NSST changes (Nonspecific) and + LBBB (incomplete)
--- NOTE | 2024-11-02 13:29 | GI REPORT ---
[facility] Patient: KENDRICK PENA : 1935 Sex at : Female Age: 89 Years Procedure: Colonoscopy Date: 11/02/2024 Attending Physician: Jad Patterson DO Referring MD: Cody Ruiz Indications: - Abnormal CT of the GI tract Medications: - Monitored Anesthesia Care Complications: - No immediate complications. Estimated Blood Loss: - Estimated blood loss: None. Procedure: - Prior to the procedure, a History and Physical was performed, and patient medications and allergies were reviewed. The patient's tolerance of previous anesthesia was also reviewed. The risks and benefits of the procedure and the sedation options and risks were discussed with the patient. All questions were answered, and informed consent was obtained. Prior Anticoagulants: The patient has taken Lovenox (enoxaparin), last dose was 1 day prior to procedure. ASA Grade Assessment: III - A patient with severe systemic disease. After reviewing the risks and benefits, the patient was deemed in satisfactory condition to undergo the procedure. - The adult colonoscope was introduced through the anus and advanced to the cecum, identified by appendiceal orifice and ileocecal valve. - The colonoscopy was performed without difficulty. - The patient tolerated the procedure well. - The quality of the bowel preparation was good. - The ileocecal valve, appendiceal orifice, and rectum were photographed. Findings: - The perianal examination was normal. - An ulcerated non-obstructing medium-sized mass was found in the cecum. The mass was non-circumferential. In addition, its diameter measured 40 mm. No bleeding was present. Biopsies were taken with a cold forceps for histology. - Multiple small-mouthed diverticula were found in the sigmoid colon. - Internal hemorrhoids were found during retroflexion. The hemorrhoids were small. 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 Biopsied. - Diverticulosis in the sigmoid colon. - Internal hemorrhoids. Recommendation: - [facility]. - Resume previous diet. - Continue present medications. - Repeat colonoscopy date to be determined after pending pathology results are reviewed for surveillance based on pathology results. - Return to referring physician as previously scheduled. - Patient has a contact number available for emergencies. The signs and symptoms of potential delayed complications were discussed with the patient. Return to normal activities tomorrow. Written discharge instructions were provided to the patient. - If the pathology report is malignant, then refer to a surgeon today. Procedure Code(s): - 41898, Colonoscopy, flexible; with biopsy, single or multiple Diagnosis Code(s): - R93.3, Abnormal findings on diagnostic imaging of other parts of digestive tract - C18.0, Malignant neoplasm of cecum - K64.8, Other hemorrhoids - K57.30, Diverticulosis of large intestine without perforation or abscess without bleeding CPT(R) - 2023 copyright [employer]. All Rights Reserved. The CPT codes, CCI edits and ICD codes generated are intended as suggestions and were generated based on input data. These codes are preliminary and upon manager track review may be revised to meet current compliance and payer requirements. The provider is responsible for the final determination of appropriate codes, and modifiers. Dr. Jad Patterson, DO This document has been electronically signed. Note Initiated:11/02/2024 Note Completed:11/02/2024 1:27 PM \\[email or web address]\[email or web address]\[id number]
--- NOTE | 2024-11-02 13:31 | Anesthesiology Progress Note ---
Date of Service November 02, 2024 Anesthesia Post Procedure Vital Signs Vital Signs: Temp Pulse Pulse Resp BP BP Pulse Ox 11/02/24 11:30 36.4 C L 88 15 178/85 H 11/02/24 07:40 36.4 C L 90 18 160/78 H 95 11/01/24 19:20 36.3 C L 88 16 190/92 H 97 11/01/24 14:31 67 186/78 H 11/01/24 14:22 36.6 C 82 14 187/83 H 96 O2 Del Method 11/02/24 11:30 Room Air 11/02/24 07:40 Room Air 11/01/24 19:20 Room Air 11/01/24 14:31 11/01/24 14:22 Room Air Pain Intensity Abdomen: Pain Intensity: 4 Transfer of Care Handoff Completed per policy Notes Mental Status: alert / awake / arousable Patient Amnestic to Procedure: Yes Nausea / Vomiting: adequately controlled Pain: adequately controlled Airway Patency, RR, SpO2: stable & adequate BP & HR: stable & adequate Hydration State: stable & adequate Anesthetic Complications: no major complications apparent and Pt Satisfied with anesthetic care
[2024-11-02 13:54] VITALS: RESP 16
[2024-11-02 14:21] VITALS: BP 174/80; PULSE 88; TEMP 97.9; O2SAT 96
[2024-11-02] MEDS: ONDANSETRON INJ 2 MG/ML 2 ML VIAL ONE (14:25)
[2024-11-02] MEDS: LIDOCAINE 2% 2 ML VIAL/AMP(20MG/ML) INFIL ONE (14:25)
[2024-11-02] MEDS: PROPOFOL IV EMULSION 10 MG/ML 20 ML VIAL IV ONE (14:25)
--- NOTE | 2024-11-02 16:03 | Discharge Summary ---
Date of Service November 02, 2024 Admission HPI Per Admitting Provider presented to ER after CT scan showing cecal mass as well as possible appendiceal inflammation. seen by surgical service already, input appreciated she notes she feels hungry per PCP visit earlier today: The patient presents for abdominal pain. She reports intermittent abdominal discomfort, which has been worsening since her last visit. She experiences constipation, despite taking Pepcid and MiraLAX daily. Her bowel movements are infrequent, occurring only once a week, and are soft in consistency. She does not experience diarrhea or hard stools. She also reports no presence of black, tarry, or bloody stools. She has never undergone a colonoscopy. She experiences severe cramps and pain in both the upper and lower abdomen, leading her to suspect appendicitis. She also reports bloating and distension. She has lost 7 pounds due to uncertainty about what to eat. She has not eaten today, but had a cup of tea in the morning. She experiences stomach cramps immediately after eating. She does not report any reflux or indigestion and maintains a good appetite. She underwent gallbladder removal in August 2023 and occasionally experiences discomfort at the site. She reports no urinary symptoms, although she has a history of UTIs. She occasionally feels cold. She recalls discussing these symptoms in July 2024, but declined an x-ray as she attributed them to constipation. She describes her stools as thin, suggesting a possible obstruction. She recalls an incident on Tuesday where she experienced severe pain and an urgent need to defecate, resulting in an explosive bowel movement. This incident provided some relief. She woke up at 3:30 AM today due to cramps. She is currently taking thyroid medication. Principal Diagnosis Cecal mass Discharge Exam General: Calm and in NAD CV: Normal r/r, S1, S2, no r/m/g Lungs: CTA b/l, no wheezing, symmetrical chest expansion, b/l Abd: normal BS, no tenderness to palpation, no rebound tenderness or guarding Extremity: no LE edema Discharge Data Allergies Allergy/AdvReac Type Severity Reaction Status Date / Time Penicillins Allergy Severe "THICK Verified 11/02/24 11:24 TONGUE, ITCHY HANDS & FEET". 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 - Awaiting histopathology results and surgery check-in - f/u outpatient FM next week with consideration for immunotherapy - d/c IV morphine - Acetaminophen for pain control. #Appendicitis - Colonoscopy does not show bowel obstruction - No signs of infection or appendicitis - Continue PO cipro/flagyl x 7 days at home - Resume normal diet #hypothyroidism -continue home synthroid #GERD -continue home famotidine Total Time Total Time Spent Total Time Spent (In Minutes): As per attending physician's attestation Discharge Plan Discharge Items Patient Disposition: Home - Self-Care Reason For Visit: CECAL MASS Discharge Diagnosis: Non obstructing cecal mass Condition on Discharge: Fair Activity: Resume your previous activity Non-emergency contact: Primary Care Provider Call non-emergency contact if: your symptoms worsen Follow-up/Referrals: Cody Ruiz DO [Primary Care Provider] - 11/07/24 10:00 am Diet: Regular Addtl Attending Provider Instructions: You were admitted due to a mass found at your cecum (junction of small and large bowel) noted on outpatient CT. The colonoscopy showed better views of the mass and demonstrated that it is non-obstructing. Biopsies were taken. Please follow up with your PCP in the next 7-10 days after the results of the biopsy return. Gastroenterology recommended that you resume your previous diet and medications. They also recommend that you have a repeat colonoscopy following your biopsy results. Pending Studies at Discharge: Yes Studies:: Colon biopsy Stand-Alone Forms: My [employer], Smoking Cessation Medications and DC Order Prescriptions: New ciprofloxacin HCl 250 mg tablet 250 mg PO Q12H 7 Days Qty: 14 0RF metronidazole 500 mg tablet 500 mg PO BID 7 Days Qty: 14 0RF Continued triamcinolone acetonide 0.1 % cream 1 applic topical BID PRN (Reason: rash) Qty: 80 1RF (DME) lumbar support See Rx Instructions .Route .MEDSUPPLY Qty: 1 0RF Rx Instructions: As directed famotidine [Pepcid] 40 mg tablet 40 mg PO DAILY PRN (Reason: Acid Reflux) Qty: 90 3RF Systane (PF) 0.4-0.3 % Dropperette 1 drp OPB QAM PRN (Reason: dry eye) levothyroxine [Synthroid] 88 mcg tablet 88 mcg PO DAILYBB ibuprofen [Advil] 200 mg Tablet 200 mg PO DAILY PRN (Reason: Pain) Discharge Orders: Discharge Order (Routine); Ordered 11/02/24 Ordered By: Lindsey Kaur Admission Data Admit Date/Time: 10/31/24 17:53 Attending Provider: Calixto Comer Admit Provider: Calixto Comer Primary Care Provider: Cody Ruiz Other Providers: Oracio Eli; Jesus Porter; Cara Bay Jr; Nathalia Hinkle; Shiraz Herron; Bang Akers; Sheldon Martinez; Michel Vila; Adri Doty; Juan Francisco Duong; Dane Burch; Joyce Uriostegui; Chintan Best. Other Interventions: Discharge Summary Assessment (RN) Last Done: 11/02/24 16:50 Supervising Physician Co-Signing Physician Notes I personally examined the patient and verified all vizcaino points of history and exam, discussed case, and agree with decision making with Dr Natasha edwards done, results discussed, pathology pending. Vitals noted, in general she is awake and alert pleasant no distress. HEENT normocephalic atraumatic mucous membranes moist. Breathing unlabored no accessory muscle use good effort. Skin without rashes pallor or icterus. Neuro without focal deficits. Cecal mass, appendiceal dilation question appendicitis from obstructionon antibiotics- would continue for now although suspect this is more just obstructive of her appendix due to mass. fortunately mass itself does not appear obstructing. home on PO abx, outpt f/u next week. safe/stable for home Resident Activity Tracking Resident Involvement: Resident Care Provided Care Provided: Adult Hospital Medicine
--- NOTE | 2024-11-02 18:48 | Billing Data ---
Date of Service November 02, 2024 Coding Level of Care Code 96150 IN/OBS DISCH 30 MIN/LESS
--- NOTE | 2024-11-02 18:49 | Billing Data ---
Date of Service November 02, 2024 Coding Level of Care Code 42588 IN/OBS DISCH 30 MIN/LESS
== END 2024-11-02 17:20 | disposition home or self-care (01) | DRG 375 ==
LOC: ED 15:27 → 3N 17:53